=== PATIENT | male | born 1930 | race Caucasian/White ===

== ENCOUNTER 2017-09-20 07:28 | Day surgery (SDC) | payer MEDICARE ==
[~2017-09-20 07:28] MED LIST: ACEBUTOLOL HCL PO; ALUM320SU PO; AMLO5 PO; ASPI325 PO; ASPI81CH PO; Aspirin EC81 MG; BIOTIN1 MG PO; BRIM.15SO BOTHEYES; CHOL10002 PO; CLOP75 PO; CYAN500 PO; DARBEPOETIN ALFA INJ; Ester-C 500 MG1 EACH PO; FLAX PO; GLUC500 PO; LATA.005SO BOTHEYES; Lipitor20 MG PO; MELA3 PO; OSTERA TABLET1 EACH PO; Rena-Vite Tabl0.8 MG PO; SEVEC800; SILD50TA PO; Saw Palmetto160 MG; TIMDOROPSO BOTHEYES; VALS80 PO
== END 2017-09-20 11:20 | disposition home or self-care (01) ==
LOC: ORSCMMR 07:28 → ORD 09:00 → ORSCMMR 11:20
PROVIDERS: Surgery
PROC: 0YU50JZ Supplement Right Inguinal Region with Synthetic Substitute, Open Approach (ICD-10-PCS; principal; 2017-09-20 09:00)
DX: K40.90 Unilateral inguinal hernia, without obstruction or gangrene, not specified as recurrent (principal); N18.4 Chronic kidney disease, stage 4 (severe); G47.33 Obstructive sleep apnea (adult) (pediatric); Z79.82 Long term (current) use of aspirin; Z79.899 Other long term (current) drug therapy
CPT/HCPCS: 84132; C1781; J0690; J1100; J2405; J2710; J2765; J3010; J7030; J7120

== ENCOUNTER → 2017-12-05 | Outpatient (CLI) | payer MEDICARE ==
[~2017-12-05] MED LIST changes: +CEPH500 PO; +LOSA25 PO; +LOSA50 PO; +Renvela800 MG; +TRAZ50 PO
== END | disposition home or self-care (01) ==
LOC: LAB SHORT 15:20 → LAB 15:20
DX: L08.9 Local infection of the skin and subcutaneous tissue, unspecified (principal)
CPT/HCPCS: 87070; 87147; 87205

== ENCOUNTER 2017-12-12 13:33 | Inpatient (IN) | payer MEDICARE ==
[~2017-12-12] VITALS: Ht 180.3 cm; Wt 69.4 kg
[~2017-12-12 13:33] MED LIST changes: -CEPH500 PO; -LATA.005SO BOTHEYES; -LOSA25 PO; -LOSA50 PO; -Renvela800 MG; -TRAZ50 PO; +Xalatan2.5 ML BOTHEYES
[2017-12-12 14:03] LABS: BASOPHILS ABSOLUTE AUTO 0.02 K/mm3 (0.00-0.23); BASOPHILS PERCENT AUTO 0 % (0-2); EOSINOPHILS ABSOLUTE AUTO 0.03 K/mm3 (0.00-0.68); EOSINOPHILS PERCENT AUTO 0 % (0-6); Hematocrit 29.7 % (37.0-53.0); Hemoglobin 9.7 g/dL (13.5-17.5); IMMATURE GRAN ABSOLUTE AUTO 0.05 K/mm3 (0.00-0.10); IMMATURE GRAN PERCENT AUTO 0 % (0-1); LYMPHOCYTES ABSOLUTE AUTO 0.58 K/mm3 (0.84-5.20); LYMPHOCYTES PERCENT AUTO 4 % (21-46); MONOCYTES ABSOLUTE AUTO 0.92 K/mm3 (0.16-1.47); MONOCYTES PERCENT AUTO 7 % (4-13); Mean Corpuscular HGB 35.7 pg (26.0-34.0); Mean Corpuscular HGB Conc 32.7 g/dL (31.5-36.5); Mean Corpuscular Volume 109 fL (80-100); Mean Platelet Volume 11.2 fL (9.1-12.4); NEUTROPHILS ABSOLUTE AUTO 11.58 K/mm3 (1.96-9.15); NEUTROPHILS PERCENT AUTO 88 % (41-73); Platelet Count 170 K/mm3 (150-400); RDW Coefficient Variation 14.4 % (11.7-14.2); RDW Standard Deviation 57.8 fL (35.1-46.3); Red Blood Cell Count 2.72 M/mm3 (4.30-5.90); White Blood Cell Count 13.18 K/mm3 (4.00-11.30)
[2017-12-12 14:41] LABS: Albumin, Blood 2.8 g/dL (3.4-5.0); Albumin/Globulin Ratio 0.6 (0.8-1.8); Bilirubin, Total 0.4 mg/dL (0.1-1.0); Bun/Creatinine Ratio 4.7 (12.0-20.0); Globulin, Blood 4.4 g/dL (2.2-4.0); Potassium, Blood 4.1 mmol/L (3.5-5.5); Total Protein, Blood 7.2 g/dL (6.4-8.2)
[2017-12-12] MEDS ORDERED: TRAZ50 PO (15:26)
[2017-12-12] MEDS ORDERED: LOSA25 PO (15:26)
[2017-12-12] MEDS ORDERED: Rena-Vite Tabl0.8 MG PO (15:27)
[2017-12-12] MEDS ORDERED: Renvela800 MG PO (15:28)
[2017-12-12] MEDS ORDERED: CEPH500 PO (15:29)
[2017-12-12 16:59] LABS: Automated BF WBC Count 13.062 K/mm3 (0-999); Body Fluid WBC Count 13062 /mm3 (0-999)
[2017-12-12 17:00] LABS: Appearance, Body Fluid Cloudy (Clear); Color, Body Fluid Yellow (None-Yellow)
[2017-12-12 17:03] LABS: Total Cell Count, Body Fluid 100
[2017-12-12 17:34] LABS: RBC Count, Body Fluid 170 /mm3 (0-0)
[2017-12-12] MEDS ORDERED: LOSA50 PO (22:55)
[2017-12-13 04:47] LABS: Hemoglobin 8.3 g/dL (13.5-17.5); Mean Corpuscular HGB 34.6 pg (26.0-34.0); Mean Corpuscular HGB Conc 31.9 g/dL (31.5-36.5); Mean Corpuscular Volume 108 fL (80-100); Platelet Count 128 K/mm3 (150-400); RDW Coefficient Variation 14.6 % (11.7-14.2); RDW Standard Deviation 57.1 fL (35.1-46.3); White Blood Cell Count 13.04 K/mm3 (4.00-11.30)
[2017-12-13 05:12] LABS: Magnesium, Blood 2.5 mg/dL (1.6-2.4)
[2017-12-13 05:22] LABS: Albumin, Blood 2.3 g/dL (3.4-5.0); Anion Gap 12 mmol/L (6-16); Blood Urea Nitrogen 64 mg/dL (8-24); Bun/Creatinine Ratio 4.9 (12.0-20.0); CO2, Blood 25 mmol/L (21-32); Calcium, Blood 8.6 mg/dL (8.5-10.1); Chloride, Blood 104 mmol/L (98-108); Glomerular Filtration Rate 4 (60-); Glucose, Blood 119 mg/dL (70-99); Phosphorus, Blood 5.4 mg/dL (2.5-4.9); Potassium, Blood 3.6 mmol/L (3.5-5.5); Sodium, Blood 141 mmol/L (136-145); Vancomycin, Random 14.1 ug/mL
[2017-12-13 12:16] LABS: Source, Urine Voided
[2017-12-13 12:22] LABS: Bilirubin, Urine Neg (Neg); Blood, Urine 1+ (Neg); Glucose Qualitative, Urine 1+ (Neg); Ketones, Urine Neg (Neg); Leukocyte Esterase, Urine Neg (Neg); Nitrite, Urine Neg (Neg); Protein, Urine 3+ (Neg); Urobilinogen, Urine NORM (Normal); pH, Urine 6.5 (5.0-8.0)
[2017-12-13 12:42] LABS: Appearance, Urine Clear (Clear); Color, Urine Yellow (P-Yellow)
[2017-12-13 12:43] LABS: Calcium Oxalate Crystals Rare /hpf; Red Blood Cells, Urine 0-2 /hpf (0-2); Squamous Epithelial Cells Rare /hpf (Few); White Blood Cells, Urine 0-2 /hpf (0-5)
[2017-12-13 15:53] LABS: Automated BF WBC Count 1.544 K/mm3 (0-999); Body Fluid WBC Count 1544 /mm3 (0-999)
[2017-12-13 16:10] LABS: RBC Count, Body Fluid 18 /mm3 (0-0)
[2017-12-13 16:32] LABS: Appearance, Body Fluid Cloudy (Clear); Color, Body Fluid L Yellow (None-Yellow); Total Cell Count, Body Fluid 100
[2017-12-14 04:58] LABS: BASOPHILS ABSOLUTE AUTO 0.02 K/mm3 (0.00-0.23); BASOPHILS PERCENT AUTO 0 % (0-2); EOSINOPHILS ABSOLUTE AUTO 0.31 K/mm3 (0.00-0.68); EOSINOPHILS PERCENT AUTO 5 % (0-6); Hematocrit 27.2 % (37.0-53.0); Hemoglobin 8.6 g/dL (13.5-17.5); IMMATURE GRAN ABSOLUTE AUTO 0.02 K/mm3 (0.00-0.10); IMMATURE GRAN PERCENT AUTO 0 % (0-1); LYMPHOCYTES ABSOLUTE AUTO 1.05 K/mm3 (0.84-5.20); LYMPHOCYTES PERCENT AUTO 15 % (21-46); MONOCYTES ABSOLUTE AUTO 0.66 K/mm3 (0.16-1.47); MONOCYTES PERCENT AUTO 10 % (4-13); Mean Corpuscular HGB 35.2 pg (26.0-34.0); Mean Corpuscular HGB Conc 31.6 g/dL (31.5-36.5); Mean Platelet Volume 11.8 fL (9.1-12.4); NEUTROPHILS ABSOLUTE AUTO 4.75 K/mm3 (1.96-9.15); NEUTROPHILS PERCENT AUTO 70 % (41-73); Platelet Count 126 K/mm3 (150-400); RDW Coefficient Variation 14.3 % (11.7-14.2); RDW Standard Deviation 58.9 fL (35.1-46.3); Red Blood Cell Count 2.44 M/mm3 (4.30-5.90); White Blood Cell Count 6.81 K/mm3 (4.00-11.30)
[2017-12-14 05:06] LABS: Mean Corpuscular Volume 112 fL (80-100)
[2017-12-14 05:19] LABS: Magnesium, Blood 2.2 mg/dL (1.6-2.4)
[2017-12-14 05:59] LABS: Albumin, Blood 2.1 g/dL (3.4-5.0); Anion Gap 11 mmol/L (6-16); Blood Urea Nitrogen 58 mg/dL (8-24); Bun/Creatinine Ratio 5.2 (12.0-20.0); CO2, Blood 26 mmol/L (21-32); Calcium, Blood 8.7 mg/dL (8.5-10.1); Chloride, Blood 101 mmol/L (98-108); Glomerular Filtration Rate 5 (60-); Glucose, Blood 136 mg/dL (70-99); Phosphorus, Blood 4.5 mg/dL (2.5-4.9); Potassium, Blood 3.3 mmol/L (3.5-5.5); Sodium, Blood 138 mmol/L (136-145); Vancomycin, Random 20.5 ug/mL
[2017-12-14 07:52] LABS: Automated BF WBC Count 0.119 K/mm3 (0-999); Body Fluid WBC Count 119 /mm3 (0-999)
[2017-12-14 08:48] LABS: RBC Count, Body Fluid 3 /mm3 (0-0)
[2017-12-14 08:59] LABS: Appearance, Body Fluid Clear (Clear); Color, Body Fluid No color (None-Yellow); Total Cell Count, Body Fluid 100
[2017-12-14] MEDS ORDERED: AMPI250 PO (11:41)
[2017-12-14] MEDS ORDERED: ACIDOPHILUS1 EAC1 PO (11:42)
[2017-12-14] MEDS ORDERED: ONDA8 PO (11:43)
== END 2017-12-14 13:19 | disposition home or self-care (01) | DRG 919 ==
LOC: ER 13:33 → ERHOLD 18:02 → ICUE 22:37 → MEDS 12-13 16:31 → ENPENDDIS 12-14 10:02 → MEDS 12-14 13:19
PROVIDERS: Emergency Medicine; Internal Medicine; Internal Medicine Nephrology; Nurse Practitioner Acute Care
DX: T85.71XA Infection and inflammatory reaction due to peritoneal dialysis catheter, initial encounter (principal); N18.6 End stage renal disease; N25.81 Secondary hyperparathyroidism of renal origin; I12.0 Hypertensive chronic kidney disease with stage 5 chronic kidney disease or end stage renal disease; K52.1 Toxic gastroenteritis and colitis; Z99.2 Dependence on renal dialysis; L03.011 Cellulitis of right finger; E78.5 Hyperlipidemia, unspecified; D63.1 Anemia in chronic kidney disease; A49.02 Methicillin resistant Staphylococcus aureus infection, unspecified site; E87.70 Fluid overload, unspecified; H40.9 Unspecified glaucoma; E87.6 Hypokalemia; B95.2 Enterococcus as the cause of diseases classified elsewhere; B96.20 Unspecified Escherichia coli [E. coli] as the cause of diseases classified elsewhere; Z79.82 Long term (current) use of aspirin; R11.2 Nausea with vomiting, unspecified; T36.1X5A Adverse effect of cephalosporins and other beta-lactam antibiotics, initial encounter; Y92.009 Unspecified place in unspecified non-institutional (private) residence as the place of occurrence of the external cause
CPT/HCPCS: 36415; 71046; 74176; 80048; 80053; 80069; 80202; 81001; 83735; 85025; 85027; 87040; 87070; 87075; 87077; 87186; 87205; 89051; 90686; 97116; 97162; 97530; 99285-25; G0008; G8978; G8979; J0690; J0696; J0713; J0881; J1644; J3370; J7040

== ENCOUNTER 2017-12-15 12:42 | Inpatient (IN) | payer MEDICARE ==
[~2017-12-15] VITALS: Ht 177.8 cm; Wt 72.5 kg
[~2017-12-15 12:42] MED LIST changes: +ACIDOPHILUS1 EAC1 PO; +AMPI250 PO; +CEPH500 PO; +LOSA25 PO; +LOSA50 PO; +ONDA8 PO; +Renvela800 MG PO; +TRAZ50 PO
[2017-12-15 13:17] LABS: BASOPHILS ABSOLUTE AUTO 0.03 K/mm3 (0.00-0.23); BASOPHILS PERCENT AUTO 0 % (0-2); EOSINOPHILS ABSOLUTE AUTO 0.15 K/mm3 (0.00-0.68); EOSINOPHILS PERCENT AUTO 1 % (0-6); Hematocrit 30.1 % (37.0-53.0); Hemoglobin 9.8 g/dL (13.5-17.5); IMMATURE GRAN ABSOLUTE AUTO 0.05 K/mm3 (0.00-0.10); IMMATURE GRAN PERCENT AUTO 0 % (0-1); LYMPHOCYTES ABSOLUTE AUTO 0.85 K/mm3 (0.84-5.20); LYMPHOCYTES PERCENT AUTO 6 % (21-46); MONOCYTES ABSOLUTE AUTO 0.78 K/mm3 (0.16-1.47); MONOCYTES PERCENT AUTO 6 % (4-13); Mean Corpuscular HGB 35.1 pg (26.0-34.0); Mean Corpuscular HGB Conc 32.6 g/dL (31.5-36.5); Mean Platelet Volume 10.8 fL (9.1-12.4); NEUTROPHILS ABSOLUTE AUTO 11.96 K/mm3 (1.96-9.15); NEUTROPHILS PERCENT AUTO 87 % (41-73); Platelet Count 182 K/mm3 (150-400); RDW Coefficient Variation 14.4 % (11.7-14.2); RDW Standard Deviation 56.8 fL (35.1-46.3); Red Blood Cell Count 2.79 M/mm3 (4.30-5.90); White Blood Cell Count 13.82 K/mm3 (4.00-11.30)
[2017-12-15 13:18] LABS: Mean Corpuscular Volume 108 fL (80-100)
[2017-12-15 14:04] LABS: Albumin, Blood 2.7 g/dL (3.4-5.0); Albumin/Globulin Ratio 0.6 (0.8-1.8); Bilirubin, Total 0.3 mg/dL (0.1-1.0); Bun/Creatinine Ratio 5.5 (12.0-20.0); Calcium, Blood 8.8 mg/dL (8.5-10.1); Creatinine, Blood 9.63 mg/dL (0.60-1.20); Globulin, Blood 4.9 g/dL (2.2-4.0); Potassium, Blood 3.7 mmol/L (3.5-5.5); Total Protein, Blood 7.6 g/dL (6.4-8.2)
[2017-12-16 05:17] LABS: BASOPHILS ABSOLUTE AUTO 0.01 K/mm3 (0.00-0.23); BASOPHILS PERCENT AUTO 0 % (0-2); EOSINOPHILS ABSOLUTE AUTO 0.24 K/mm3 (0.00-0.68); EOSINOPHILS PERCENT AUTO 4 % (0-6); Hematocrit 25.8 % (37.0-53.0); Hemoglobin 8.1 g/dL (13.5-17.5); IMMATURE GRAN ABSOLUTE AUTO 0.03 K/mm3 (0.00-0.10); IMMATURE GRAN PERCENT AUTO 1 % (0-1); LYMPHOCYTES PERCENT AUTO 17 % (21-46); MONOCYTES ABSOLUTE AUTO 0.52 K/mm3 (0.16-1.47); MONOCYTES PERCENT AUTO 10 % (4-13); Mean Corpuscular HGB 34.9 pg (26.0-34.0); Mean Corpuscular HGB Conc 31.4 g/dL (31.5-36.5); Mean Platelet Volume 11.1 fL (9.1-12.4); NEUTROPHILS ABSOLUTE AUTO 3.75 K/mm3 (1.96-9.15); NEUTROPHILS PERCENT AUTO 69 % (41-73); Platelet Count 148 K/mm3 (150-400); RDW Coefficient Variation 14.6 % (11.7-14.2); RDW Standard Deviation 59.6 fL (35.1-46.3); Red Blood Cell Count 2.32 M/mm3 (4.30-5.90); White Blood Cell Count 5.45 K/mm3 (4.00-11.30)
[2017-12-16 05:20] LABS: Mean Corpuscular Volume 111 fL (80-100)
[2017-12-16 05:40] LABS: Gentamicin, Random <0.2 ug/Ml; Vancomycin, Random 15.3 ug/mL
[2017-12-16 05:49] LABS: Alanine Aminotransfer (ALT/SGP 11 U/L (12-78); Albumin/Globulin Ratio 0.5 (0.8-1.8); Alk Phos 65 U/L (50-136); Anion Gap 11 mmol/L (6-16); Aspartate Aminotrans (AST/SGOT 25 U/L (12-37); Bilirubin, Total 0.3 mg/dL (0.1-1.0); Blood Urea Nitrogen 50 mg/dL (8-24); Bun/Creatinine Ratio 5.4 (12.0-20.0); CO2, Blood 27 mmol/L (21-32); Calcium, Blood 8.1 mg/dL (8.5-10.1); Chloride, Blood 102 mmol/L (98-108); Creatinine, Blood 9.27 mg/dL (0.60-1.20); Globulin, Blood 4.2 g/dL (2.2-4.0); Glomerular Filtration Rate 6 (60-); Glucose, Blood 162 mg/dL (70-99); Phosphorus, Blood 3.5 mg/dL (2.5-4.9); Potassium, Blood 3.2 mmol/L (3.5-5.5); Sodium, Blood 140 mmol/L (136-145); Total Protein, Blood 6.2 g/dL (6.4-8.2)
[2017-12-16 13:28] LABS: Automated BF WBC Count 0.275 K/mm3 (0-999); Body Fluid WBC Count 275 /mm3 (0-999)
[2017-12-16 14:19] LABS: Appearance, Body Fluid Clear (Clear); Color, Body Fluid No color (None-Yellow); RBC Count, Body Fluid 2 /mm3 (0-0)
[2017-12-16 15:12] LABS: Total Cell Count, Body Fluid 100
[2017-12-16 16:07] LABS: Gentamicin, Random 1.1 ug/Ml; Vancomycin, Random 27.8 ug/mL
[2017-12-17 05:16] LABS: Hematocrit 25.8 % (37.0-53.0)
[2017-12-17 05:47] LABS: Albumin, Blood 1.9 g/dL (3.4-5.0); Anion Gap 11 mmol/L (6-16); Blood Urea Nitrogen 43 mg/dL (8-24); Bun/Creatinine Ratio 5.1 (12.0-20.0); CO2, Blood 27 mmol/L (21-32); Chloride, Blood 104 mmol/L (98-108); Creatinine, Blood 8.42 mg/dL (0.60-1.20); Glomerular Filtration Rate 6 (60-); Glucose, Blood 147 mg/dL (70-99); Phosphorus, Blood 3.4 mg/dL (2.5-4.9); Potassium, Blood 3.1 mmol/L (3.5-5.5); Sodium, Blood 142 mmol/L (136-145)
[2017-12-17 12:33] LABS: Gentamicin, Random 1.3 ug/Ml; Vancomycin, Random 23.1 ug/mL
[2017-12-18 05:26] LABS: BASOPHILS ABSOLUTE AUTO 0.02 K/mm3 (0.00-0.23); BASOPHILS PERCENT AUTO 0 % (0-2); EOSINOPHILS ABSOLUTE AUTO 0.39 K/mm3 (0.00-0.68); EOSINOPHILS PERCENT AUTO 7 % (0-6); Hematocrit 26.6 % (37.0-53.0); Hemoglobin 8.3 g/dL (13.5-17.5); IMMATURE GRAN ABSOLUTE AUTO 0.05 K/mm3 (0.00-0.10); IMMATURE GRAN PERCENT AUTO 1 % (0-1); LYMPHOCYTES PERCENT AUTO 19 % (21-46); MONOCYTES ABSOLUTE AUTO 0.76 K/mm3 (0.16-1.47); MONOCYTES PERCENT AUTO 13 % (4-13); Mean Corpuscular HGB 34.9 pg (26.0-34.0); Mean Corpuscular HGB Conc 31.2 g/dL (31.5-36.5); Mean Corpuscular Volume 112 fL (80-100); Mean Platelet Volume 11.5 fL (9.1-12.4); NEUTROPHILS ABSOLUTE AUTO 3.51 K/mm3 (1.96-9.15); NEUTROPHILS PERCENT AUTO 60 % (41-73); NRBC ABSOLUTE 0.04 K/mm3 (0.00-0.02); NRBC Auto 0.7 /100 WBC (0.0-0.2); Platelet Count 158 K/mm3 (150-400); RDW Coefficient Variation 14.9 % (11.7-14.2); Red Blood Cell Count 2.38 M/mm3 (4.30-5.90); White Blood Cell Count 5.83 K/mm3 (4.00-11.30)
[2017-12-18 05:48] LABS: Magnesium, Blood 2.1 mg/dL (1.6-2.4)
[2017-12-18 05:53] LABS: Anion Gap 11 mmol/L (6-16); Blood Urea Nitrogen 46 mg/dL (8-24); Bun/Creatinine Ratio 5.1 (12.0-20.0); CO2, Blood 27 mmol/L (21-32); Calcium, Blood 8.6 mg/dL (8.5-10.1); Chloride, Blood 105 mmol/L (98-108); Creatinine, Blood 9.06 mg/dL (0.60-1.20); Glomerular Filtration Rate 6 (60-); Glucose, Blood 123 mg/dL (70-99); Phosphorus, Blood 2.6 mg/dL (2.5-4.9); Potassium, Blood 3.7 mmol/L (3.5-5.5); Sodium, Blood 143 mmol/L (136-145)
[2017-12-18 07:44] LABS: Body Fluid WBC Count 10 /mm3 (0-999)
[2017-12-18 07:46] LABS: Gentamicin, Random 1.3 ug/Ml; Vancomycin, Random 21.2 ug/mL
[2017-12-18 08:24] LABS: RBC Count, Body Fluid 1 /mm3 (0-0)
[2017-12-18 08:49] LABS: Appearance, Body Fluid Clear (Clear); Color, Body Fluid No color (None-Yellow)
[2017-12-18 08:50] LABS: Total Cell Count, Body Fluid 100
[2017-12-18 10:09] LABS: Adenovirus F 40/41 Not Detected (NOT DETECT); Astrovirus Not Detected (NOT DETECT); Campylobacter Sp Not Detected (NOT DETECT); Cryptosporidium Not Detected (NOT DETECT); Cyclospora Cayetanensis Not Detected (NOT DETECT); E. Coli O157 Not Detected (NOT DETECT); Entamoeba Histolytica Not Detected (NOT DETECT); Enteroaggregative E. coli-EAEC Not Detected (NOT DETECT); Enteropathogenic E. coli-EPEC Not Detected (NOT DETECT); Enterotoxigenic E. coli-ETEC Not Detected (NOT DETECT); Giardia Lamblia Not Detected (NOT DETECT); Norovirus GI/GII Not Detected (NOT DETECT); Plesiomonas Shigelloides Not Detected (NOT DETECT); Rotavirus A Not Detected (NOT DETECT); Salmonella Sp Not Detected (NOT DETECT); Sapovirus Not Detected (NOT DETECT); Shiga Toxin-prod E. coli-STEC Not Detected (NOT DETECT); Shigella/Enteroin E. coli-EIEC Not Detected (NOT DETECT); Vibrio Cholerae Not Detected (NOT DETECT); Vibrio Sp Not Detected (NOT DETECT); Yersinia Enterocolitica Not Detected (NOT DETECT)
[2017-12-19 06:06] LABS: BASOPHILS ABSOLUTE AUTO 0.02 K/mm3 (0.00-0.23); BASOPHILS PERCENT AUTO 0 % (0-2); EOSINOPHILS ABSOLUTE AUTO 0.36 K/mm3 (0.00-0.68); EOSINOPHILS PERCENT AUTO 6 % (0-6); Hematocrit 27.3 % (37.0-53.0); Hemoglobin 8.5 g/dL (13.5-17.5); IMMATURE GRAN ABSOLUTE AUTO 0.04 K/mm3 (0.00-0.10); IMMATURE GRAN PERCENT AUTO 1 % (0-1); LYMPHOCYTES ABSOLUTE AUTO 1.31 K/mm3 (0.84-5.20); LYMPHOCYTES PERCENT AUTO 21 % (21-46); MONOCYTES ABSOLUTE AUTO 0.74 K/mm3 (0.16-1.47); MONOCYTES PERCENT AUTO 12 % (4-13); Mean Corpuscular HGB 35.3 pg (26.0-34.0); Mean Corpuscular HGB Conc 31.1 g/dL (31.5-36.5); Mean Corpuscular Volume 113 fL (80-100); Mean Platelet Volume 11.3 fL (9.1-12.4); NEUTROPHILS ABSOLUTE AUTO 3.71 K/mm3 (1.96-9.15); NEUTROPHILS PERCENT AUTO 60 % (41-73); NRBC ABSOLUTE 0.03 K/mm3 (0.00-0.02); NRBC Auto 0.5 /100 WBC (0.0-0.2); Platelet Count 173 K/mm3 (150-400); RDW Coefficient Variation 14.8 % (11.7-14.2); RDW Standard Deviation 61.7 fL (35.1-46.3); Red Blood Cell Count 2.41 M/mm3 (4.30-5.90); White Blood Cell Count 6.18 K/mm3 (4.00-11.30)
[2017-12-19 07:07] LABS: Albumin, Blood 2.2 g/dL (3.4-5.0); Anion Gap 10 mmol/L (6-16); Blood Urea Nitrogen 45 mg/dL (8-24); Bun/Creatinine Ratio 4.5 (12.0-20.0); CO2, Blood 28 mmol/L (21-32); Calcium, Blood 8.6 mg/dL (8.5-10.1); Chloride, Blood 106 mmol/L (98-108); Glomerular Filtration Rate 5 (60-); Glucose, Blood 117 mg/dL (70-99); Phosphorus, Blood 3.4 mg/dL (2.5-4.9); Sodium, Blood 144 mmol/L (136-145)
[2017-12-19 07:47] LABS: Gentamicin, Random 1.9 ug/Ml; Vancomycin, Random 21.5 ug/mL
[2017-12-19 19:39] LABS: Source, Urine Catheter
[2017-12-19 19:49] LABS: Bilirubin, Urine Neg (Neg); Blood, Urine 1+ (Neg); Glucose Qualitative, Urine 1+ (Neg); Ketones, Urine Neg (Neg); Leukocyte Esterase, Urine Neg (Neg); Nitrite, Urine Neg (Neg); Protein, Urine 3+ (Neg); Urobilinogen, Urine NORM (Normal)
[2017-12-19 20:30] LABS: Appearance, Urine Clear (Clear); Color, Urine Yellow (P-Yellow)
[2017-12-19 20:31] LABS: Red Blood Cells, Urine 0-2 /hpf (0-2)
[2017-12-19 20:32] LABS: Bacteria Not Seen /hpf; Squamous Epithelial Cells Rare /hpf (Few)
[2017-12-20 04:56] LABS: Gentamicin, Random 1.9 ug/Ml; Vancomycin, Random 18.2 ug/mL
[2017-12-21 05:47] LABS: BASOPHILS ABSOLUTE AUTO 0.03 K/mm3 (0.00-0.23); BASOPHILS PERCENT AUTO 1 % (0-2); EOSINOPHILS ABSOLUTE AUTO 0.35 K/mm3 (0.00-0.68); EOSINOPHILS PERCENT AUTO 6 % (0-6); Hematocrit 27.5 % (37.0-53.0); Hemoglobin 8.4 g/dL (13.5-17.5); IMMATURE GRAN ABSOLUTE AUTO 0.07 K/mm3 (0.00-0.10); IMMATURE GRAN PERCENT AUTO 1 % (0-1); LYMPHOCYTES ABSOLUTE AUTO 1.46 K/mm3 (0.84-5.20); LYMPHOCYTES PERCENT AUTO 25 % (21-46); MONOCYTES ABSOLUTE AUTO 0.85 K/mm3 (0.16-1.47); MONOCYTES PERCENT AUTO 15 % (4-13); Mean Corpuscular HGB 35.3 pg (26.0-34.0); Mean Corpuscular HGB Conc 30.5 g/dL (31.5-36.5); Mean Platelet Volume 11.6 fL (9.1-12.4); NEUTROPHILS ABSOLUTE AUTO 3.08 K/mm3 (1.96-9.15); NEUTROPHILS PERCENT AUTO 53 % (41-73); NRBC ABSOLUTE 0.04 K/mm3 (0.00-0.02); NRBC Auto 0.7 /100 WBC (0.0-0.2); Platelet Count 176 K/mm3 (150-400); RDW Coefficient Variation 15.5 % (11.7-14.2); RDW Standard Deviation 63.5 fL (35.1-46.3); Red Blood Cell Count 2.38 M/mm3 (4.30-5.90); White Blood Cell Count 5.84 K/mm3 (4.00-11.30)
[2017-12-21 05:49] LABS: Mean Corpuscular Volume 116 fL (80-100)
[2017-12-21 06:32] LABS: Albumin, Blood 2.2 g/dL (3.4-5.0); Anion Gap 11 mmol/L (6-16); Blood Urea Nitrogen 52 mg/dL (8-24); Bun/Creatinine Ratio 4.7 (12.0-20.0); CO2, Blood 25 mmol/L (21-32); Calcium, Blood 8.2 mg/dL (8.5-10.1); Chloride, Blood 106 mmol/L (98-108); Glomerular Filtration Rate 5 (60-); Glucose, Blood 121 mg/dL (70-99); Phosphorus, Blood 4.2 mg/dL (2.5-4.9); Potassium, Blood 4.6 mmol/L (3.5-5.5); Sodium, Blood 142 mmol/L (136-145)
[2017-12-21 12:41] LABS: Gentamicin, Random 1.7 ug/Ml; Vancomycin, Random 19.4 ug/mL
[2017-12-22 05:48] LABS: BASOPHILS ABSOLUTE AUTO 0.04 K/mm3 (0.00-0.23); BASOPHILS PERCENT AUTO 1 % (0-2); EOSINOPHILS ABSOLUTE AUTO 0.35 K/mm3 (0.00-0.68); EOSINOPHILS PERCENT AUTO 6 % (0-6); Hemoglobin 8.6 g/dL (13.5-17.5); IMMATURE GRAN ABSOLUTE AUTO 0.09 K/mm3 (0.00-0.10); IMMATURE GRAN PERCENT AUTO 2 % (0-1); LYMPHOCYTES ABSOLUTE AUTO 1.42 K/mm3 (0.84-5.20); LYMPHOCYTES PERCENT AUTO 25 % (21-46); MONOCYTES ABSOLUTE AUTO 0.82 K/mm3 (0.16-1.47); MONOCYTES PERCENT AUTO 14 % (4-13); Mean Corpuscular HGB 35.4 pg (26.0-34.0); Mean Corpuscular HGB Conc 30.7 g/dL (31.5-36.5); Mean Corpuscular Volume 115 fL (80-100); Mean Platelet Volume 11.2 fL (9.1-12.4); NEUTROPHILS ABSOLUTE AUTO 2.99 K/mm3 (1.96-9.15); NEUTROPHILS PERCENT AUTO 52 % (41-73); NRBC ABSOLUTE 0.04 K/mm3 (0.00-0.02); NRBC Auto 0.7 /100 WBC (0.0-0.2); Platelet Count 185 K/mm3 (150-400); RDW Coefficient Variation 15.9 % (11.7-14.2); RDW Standard Deviation 63.7 fL (35.1-46.3); Red Blood Cell Count 2.43 M/mm3 (4.30-5.90); White Blood Cell Count 5.71 K/mm3 (4.00-11.30)
[2017-12-22 06:26] LABS: Albumin, Blood 2.2 g/dL (3.4-5.0); Anion Gap 12 mmol/L (6-16); Blood Urea Nitrogen 56 mg/dL (8-24); Bun/Creatinine Ratio 4.9 (12.0-20.0); CO2, Blood 24 mmol/L (21-32); Calcium, Blood 8.2 mg/dL (8.5-10.1); Chloride, Blood 108 mmol/L (98-108); Glomerular Filtration Rate 5 (60-); Glucose, Blood 130 mg/dL (70-99); Phosphorus, Blood 4.6 mg/dL (2.5-4.9); Sodium, Blood 144 mmol/L (136-145)
[2017-12-22 17:56] LABS: Automated BF WBC Count 0.026 K/mm3 (0-999); Body Fluid WBC Count 26 /mm3 (0-999)
[2017-12-22 18:12] LABS: Appearance, Body Fluid Clear (Clear); Color, Body Fluid No color (None-Yellow); RBC Count, Body Fluid 2 /mm3 (0-0)
[2017-12-22 18:35] LABS: Total Cell Count, Body Fluid 100
[2017-12-23 05:59] LABS: Hematocrit 31.9 % (37.0-53.0); Hemoglobin 9.8 g/dL (13.5-17.5)
[2017-12-23 06:28] LABS: Magnesium, Blood 2.6 mg/dL (1.6-2.4)
[2017-12-23 06:37] LABS: Albumin, Blood 2.3 g/dL (3.4-5.0); Anion Gap 10 mmol/L (6-16); Blood Urea Nitrogen 64 mg/dL (8-24); Bun/Creatinine Ratio 5.2 (12.0-20.0); CO2, Blood 25 mmol/L (21-32); Calcium, Blood 8.1 mg/dL (8.5-10.1); Chloride, Blood 107 mmol/L (98-108); Glomerular Filtration Rate 4 (60-); Glucose, Blood 147 mg/dL (70-99); Phosphorus, Blood 5.1 mg/dL (2.5-4.9); Sodium, Blood 142 mmol/L (136-145)
[2017-12-23] MEDS ORDERED: COSOPT PF EYE1 EACH BOTHEYES (09:51)
[2017-12-23] MEDS ORDERED: Questran4 GM PO (09:54)
[2017-12-23] MEDS ORDERED: VANC125 PO (10:03)
[2017-12-23] MEDS ORDERED: METR500 PO (10:04)
== END 2017-12-23 13:09 | disposition home or self-care (01) | DRG 919 ==
LOC: ER 12:42 → MEDS 12:43 → ENPENDDIS 12-23 08:54 → MEDS 12-23 13:09
PROVIDERS: Emergency Medicine; Family Medicine; Internal Medicine Nephrology
DX: T85.71XA Infection and inflammatory reaction due to peritoneal dialysis catheter, initial encounter (principal); N18.6 End stage renal disease; N25.81 Secondary hyperparathyroidism of renal origin; A04.72 Enterocolitis due to Clostridium difficile, not specified as recurrent; I12.0 Hypertensive chronic kidney disease with stage 5 chronic kidney disease or end stage renal disease; E78.5 Hyperlipidemia, unspecified; D63.1 Anemia in chronic kidney disease; H40.9 Unspecified glaucoma; Z95.2 Presence of prosthetic heart valve; I77.0 Arteriovenous fistula, acquired; Z99.2 Dependence on renal dialysis; I25.10 Atherosclerotic heart disease of native coronary artery without angina pectoris; E86.9 Volume depletion, unspecified; D69.6 Thrombocytopenia, unspecified; E87.6 Hypokalemia; B96.20 Unspecified Escherichia coli [E. coli] as the cause of diseases classified elsewhere; T85.631A Leakage of intraperitoneal dialysis catheter, initial encounter; B96.6 Bacteroides fragilis [B. fragilis] as the cause of diseases classified elsewhere; E83.41 Hypermagnesemia; Z79.82 Long term (current) use of aspirin
CPT/HCPCS: 36415; 74018; 74177; 80053; 80069; 80170; 80202; 81001; 83735; 84100; 85014; 85018; 85025; 86850; 86900; 86901; 86923; 87086; 87507; 89051; 99284; C9113; J0881; J1580; J1644; J1650; J2543; J3370; J3480; J7030; J7050; P9016; Q9967

== ENCOUNTER 2018-03-27 15:51 | Emergency (ER) | payer MEDICARE ==
[~2018-03-27] VITALS: Ht 180.3 cm; Wt 74.4 kg
[~2018-03-27 15:51] MED LIST changes: -ASPI81CH PO; +COSOPT PF EYE1 EACH BOTHEYES; +Calphron667 MG PO; +FLAX SEED OIL1 EACH PO; +LOW DOSE ASPIRI81 MG PO; +METR500 PO; +Questran4 GM PO; +VANC125 PO
[2018-03-27 16:10] LABS: BASOPHILS ABSOLUTE AUTO 0.01 K/mm3 (0.00-0.23); BASOPHILS PERCENT AUTO 0 % (0-2); EOSINOPHILS ABSOLUTE AUTO 0.13 K/mm3 (0.00-0.68); EOSINOPHILS PERCENT AUTO 2 % (0-6); Hematocrit 25.5 % (37.0-53.0); Hemoglobin 8.1 g/dL (13.5-17.5); IMMATURE GRAN ABSOLUTE AUTO 0.05 K/mm3 (0.00-0.10); IMMATURE GRAN PERCENT AUTO 1 % (0-1); LYMPHOCYTES PERCENT AUTO 6 % (21-46); MONOCYTES ABSOLUTE AUTO 0.88 K/mm3 (0.16-1.47); MONOCYTES PERCENT AUTO 11 % (4-13); Mean Corpuscular HGB Conc 31.8 g/dL (31.5-36.5); Mean Corpuscular Volume 113 fL (80-100); Mean Platelet Volume 12.4 fL (9.1-12.4); NEUTROPHILS ABSOLUTE AUTO 6.43 K/mm3 (1.96-9.15); NEUTROPHILS PERCENT AUTO 80 % (41-73); Platelet Count 131 K/mm3 (150-400); RDW Coefficient Variation 15.7 % (11.7-14.2); RDW Standard Deviation 64.4 fL (35.1-46.3); Red Blood Cell Count 2.25 M/mm3 (4.30-5.90)
[2018-03-27] MEDS ORDERED: ARANESP INJ (16:29)
[2018-03-27] MEDS ORDERED: LOSA50 PO ×2 (16:30)
[2018-03-27] MEDS ORDERED: Alphagan P 5ML5 ML BOTHEYES (16:30)
[2018-03-27] MEDS ORDERED: Super B Comple1 EAC2 PO (16:31)
[2018-03-27] MEDS ORDERED: BIOTIN1000 MCG PO (16:31)
[2018-03-27] MEDS ORDERED: Saw Palmetto160 MG PO (16:32)
[2018-03-27 16:42] LABS: Albumin, Blood 2.2 g/dL (3.4-5.0); Albumin/Globulin Ratio 0.5 (0.8-1.8); Bilirubin, Total 0.4 mg/dL (0.1-1.0); Bun/Creatinine Ratio 7.5 (12.0-20.0); Calcium, Blood 7.4 mg/dL (8.5-10.1); Creatinine, Blood 12.2 mg/dL (0.60-1.20); Globulin, Blood 4.3 g/dL (2.2-4.0); Potassium, Blood 3.4 mmol/L (3.5-5.5); Total Protein, Blood 6.5 g/dL (6.4-8.2)
[2018-03-27] MEDS ORDERED: PRED10 PO (17:36)
== END 2018-03-27 17:48 | disposition home or self-care (01) ==
LOC: ER 15:51
PROVIDERS: Emergency Medicine
DX: M25.50 Pain in unspecified joint (principal); F19.939 Other psychoactive substance use, unspecified with withdrawal, unspecified; I12.9 Hypertensive chronic kidney disease with stage 1 through stage 4 chronic kidney disease, or unspecified chronic kidney disease; N18.9 Chronic kidney disease, unspecified; E78.5 Hyperlipidemia, unspecified; D64.9 Anemia, unspecified
CPT/HCPCS: 36415; 80053; 85025; 96374; 99283-25; J2930

== ENCOUNTER 2018-03-30 10:23 | Inpatient (IN) | payer MEDICARE ==
[~2018-03-30] VITALS: Ht 180.3 cm; Wt 70.0 kg
[~2018-03-30 10:23] MED LIST changes: +ARANESP INJ; +Alphagan P 5ML5 ML BOTHEYES; +BIOTIN1000 MCG PO; +PRED10 PO; +Saw Palmetto160 MG PO; +Super B Comple1 EAC2 PO
[2018-03-30] MEDS ORDERED: CLOP75 PO (11:00)
[2018-03-30 11:27] LABS: BASOPHILS ABSOLUTE AUTO 0.01 K/mm3 (0.00-0.23); BASOPHILS PERCENT AUTO 0 % (0-2); EOSINOPHILS ABSOLUTE AUTO 0.02 K/mm3 (0.00-0.68); EOSINOPHILS PERCENT AUTO 0 % (0-6); Hematocrit 24.4 % (37.0-53.0); Hemoglobin 7.5 g/dL (13.5-17.5); IMMATURE GRAN ABSOLUTE AUTO 0.18 K/mm3 (0.00-0.10); IMMATURE GRAN PERCENT AUTO 2 % (0-1); LYMPHOCYTES ABSOLUTE AUTO 0.99 K/mm3 (0.84-5.20); LYMPHOCYTES PERCENT AUTO 10 % (21-46); MONOCYTES ABSOLUTE AUTO 0.88 K/mm3 (0.16-1.47); MONOCYTES PERCENT AUTO 9 % (4-13); Mean Corpuscular HGB Conc 30.7 g/dL (31.5-36.5); Mean Corpuscular Volume 114 fL (80-100); Mean Platelet Volume 12.6 fL (9.1-12.4); NEUTROPHILS ABSOLUTE AUTO 8.13 K/mm3 (1.96-9.15); NEUTROPHILS PERCENT AUTO 80 % (41-73); Platelet Count 183 K/mm3 (150-400); RDW Coefficient Variation 15.9 % (11.7-14.2); RDW Standard Deviation 65.3 fL (35.1-46.3); Red Blood Cell Count 2.14 M/mm3 (4.30-5.90); White Blood Cell Count 10.21 K/mm3 (4.00-11.30)
[2018-03-30 11:45] LABS: Free Thyroxine 1.87 ng/dL (0.70-1.60); Magnesium, Blood 2.8 mg/dL (1.6-2.4)
[2018-03-30 11:47] LABS: Thyroid Stimulating Hormone 0.339 uIU/mL (0.360-4.800)
[2018-03-30 11:50] LABS: Albumin, Blood 2.3 g/dL (3.4-5.0); Albumin/Globulin Ratio 0.6 (0.8-1.8); Bilirubin, Total 0.5 mg/dL (0.1-1.0); Bun/Creatinine Ratio 10.6 (12.0-20.0); Calcium, Blood 7.1 mg/dL (8.5-10.1); Creatinine, Blood 11.2 mg/dL (0.60-1.20); Globulin, Blood 3.9 g/dL (2.2-4.0); Potassium, Blood 3.6 mmol/L (3.5-5.5); Total Protein, Blood 6.2 g/dL (6.4-8.2)
[2018-03-30 16:40] LABS: International Normalized Ratio 1.08; Prothrombin Time Results 11.1 Sec (9.7-11.5)
--- NOTE | 2018-03-30 19:50 | NUR ---
ARRIVAL TO ICU 1740 - PT ARRIVES FROM ED AT THIS TIME. HE IS DROWSY AND PALE IN COLOR. ORIENTED X 3, CALM, COOPERATIVE, AND ANSWERS QUESTIONS APPROPRIATELY. DENIES PAIN WHEN ASKED. PT HAS BRUISING TO BOTH UPPER EXTREMITIES. 18G IV INSERTED INTO EUGENIE WITH ULTRASOUND. HEPARIN INFUSION STARTED AT 1800, RATE IS 13 UNITS/HR PER ORDER. 5000 UNIT BOLUS GIVEN PRIOR TO STARTING GTT. WHEN PT INITIALLY ARRIVED, HIS BP WAS 60S SYSTOLIC WITH MAP 45-55. MD DUTTA NOTIFIED OF BP. ALBUMIN 25 GM/100ML THEN ORDERED AND ADMINISTERED. 1/2 UNITS OF PRBCS FINISHED INFUSING SHORTLY AFTER ARRIVAL TO ICU. PT RECEIVING UNIT 2/2 WITH HEMODIALYSIS AT THIS TIME. PTS BLOOD PRESSURE UP TO MAP OF 65-70 AT THIS TIME. REMAINS IN AFIB, HR 100-120. WILL CONTINUE TO MONITOR.
--- NOTE | 2018-03-30 19:54 | NUR ---
CONTINUING CARE THIS RN CONTINUING CARE OF PT AT CHANGE OF SHIFT. CURRENTLY RECEIVING HEMODIALYSIS AND UNIT 2/2 OF PRBCS. WILL RECIEVE PERITONEAL DIALYSIS NEXT.
--- NOTE | 2018-03-30 20:10 | NUR ---
DIALYSIS -PD SETUP WITH 1 4.25% DEXTROSE AND 1 2.5% DEXTROSE DIANEAL 6 L BAGS. CLEANED AND DRESSED SITE. TALKED TO RN ON DIRECTOR [employer]. CONNECTED PT PER PROTOCAL AFTER TAKING SAMPLE FOR LAB
[2018-03-30 20:32] LABS: Automated BF WBC Count 0.008 K/mm3 (0-999); Body Fluid WBC Count 8 /mm3 (0-999)
[2018-03-30 20:38] LABS: RBC Count, Body Fluid < 2000 /mm3 (0-0)
[2018-03-30 21:53] LABS: Appearance, Body Fluid Clear (Clear); Color, Body Fluid L Yellow (None-Yellow); Total Cell Count, Body Fluid 100
--- NOTE | 2018-03-30 22:46 | NUR ---
SHIFT SUMMARY PT ARRIVED FROM ED TO ICU AT 1730. ARRIVED WITH LOW BP AND 1/2 PRBCS INFUSING. HEMODIALYSIS STARTED SHORTLY AFTER ARRIVAL AND 2/2 PRBCS ADMINISTERED BY BLOOD BANK BOOKING CLERK. SEE BP RECORD FOR TRENDS. PT TOLERATED MANY IV ATTEMPTS AND REMOVALS DUE TO INFILTRATION. DENIES PAIN WHEN ASKED. DROWSY BUT ORIENTED X3 AND APPROPRIATE. CURRENTLY RECEIVING PERITONEAL DIALYSIS. AFEBRILE. HAS BEEN IN AFIB WITH HR 100-130 ENTIRE SHIFT. WILL GIVE BEDSIDE, HANDOFF REPORT TO MARYSE ZHANG.
--- NOTE | 2018-03-30 23:15 | NUR ---
ASSUMED CARE ASSUMED CARE OF PATIENT. RESTING QUIETLY WHEN UNDISTURBED. ROUSES EASILY TO VERBAL STIMULI. ORIENTED X 3 AND COOPERATIVE WITH CARE. DENIES C/O PAIN AT THIS TIME. MONITOR SHOWS AFIB, RATE 110-130. BBB NOTED. SBP 80s, MAP 60-65. REMAINS ON RA, SATS 94-97%. RESPIRATIONS EVEN AND UNLABORED. PERITONEAL DIALYSIS CONTINUES. HEPARIN GTT CONTINUES @ 13UNITS/KG/HR PER PHARMACY- NEXT PTT @ 0100.
[2018-03-31 03:01] LABS: BASOPHILS ABSOLUTE AUTO 0.01 K/mm3 (0.00-0.23); BASOPHILS PERCENT AUTO 0 % (0-2); EOSINOPHILS PERCENT AUTO 0 % (0-6); Hematocrit 27.9 % (37.0-53.0); Hemoglobin 9.2 g/dL (13.5-17.5); IMMATURE GRAN ABSOLUTE AUTO 0.26 K/mm3 (0.00-0.10); IMMATURE GRAN PERCENT AUTO 3 % (0-1); LYMPHOCYTES ABSOLUTE AUTO 0.48 K/mm3 (0.84-5.20); LYMPHOCYTES PERCENT AUTO 5 % (21-46); MONOCYTES ABSOLUTE AUTO 0.66 K/mm3 (0.16-1.47); MONOCYTES PERCENT AUTO 7 % (4-13); Mean Corpuscular HGB 34.2 pg (26.0-34.0); Mean Platelet Volume 12.6 fL (9.1-12.4); NEUTROPHILS ABSOLUTE AUTO 7.99 K/mm3 (1.96-9.15); NEUTROPHILS PERCENT AUTO 85 % (41-73); NRBC ABSOLUTE 0.02 K/mm3 (0.00-0.02); NRBC Auto 0.2 /100 WBC (0.0-0.2); Platelet Count 160 K/mm3 (150-400); RDW Coefficient Variation 21.1 % (11.7-14.2); RDW Standard Deviation 78.3 fL (35.1-46.3); Red Blood Cell Count 2.69 M/mm3 (4.30-5.90)
[2018-03-31 03:02] LABS: Mean Corpuscular Volume 104 fL (80-100)
[2018-03-31 03:15] LABS: International Normalized Ratio 1.13; Prothrombin Time Results 11.6 Sec (9.7-11.5)
[2018-03-31 03:17] LABS: Albumin, Blood 2.5 g/dL (3.4-5.0); Anion Gap 19 mmol/L (6-16); Blood Urea Nitrogen 73 mg/dL (8-24); Bun/Creatinine Ratio 9.5 (12.0-20.0); CO2, Blood 23 mmol/L (21-32); Calcium, Blood 7.1 mg/dL (8.5-10.1); Chloride, Blood 99 mmol/L (98-108); Creatinine, Blood 7.67 mg/dL (0.60-1.20); Glomerular Filtration Rate 7 (60-); Glucose, Blood 325 mg/dL (70-99); Magnesium, Blood 2.3 mg/dL (1.6-2.4); Phosphorus, Blood 6.7 mg/dL (2.5-4.9); Potassium, Blood 3.2 mmol/L (3.5-5.5); Sodium, Blood 141 mmol/L (136-145)
--- NOTE | 2018-03-31 03:35 | NUR ---
BP NIBP VIA MONITOR IS READING 70s/40s. MANUAL BP CHECKED- 86/54(63).
--- NOTE | 2018-03-31 04:15 | NUR ---
HEPARIN HEPARIN BOLUS 3700UNITS IV GIVEN PER PHARMACY. HEPARIN GTT INCREASED TO 15UNITS/KG/HR (22.2CC/HR) PER PHARMACY. NEXT PTT SCHEDULED FOR 1000.
--- NOTE | 2018-03-31 05:00 | NUR ---
CONFUSION PT FOUND ATTEMPTING TO CLIMB OUT OF BED. IV PULLED OUT AND LEADS PULLED OFF. DISORIENTED TO PLACE AND DATE/TIME. REORIENTED WITHOUT DIFFICULTY. PT STATES "I DIDN'T KNOW WHERE I WAS AND I NEEDED TO GET OUT OF BED." PT UP TO CHAIR WHILE LINEN CHANGE DONE (DUE TO BLOOD FROM IV). VACK TO BED WITH TWO PERSON ASSIST. PT REMAINS VERY WEAK. NEW IVs PLACED X 2 AND HEPARIN GTT RESTARTED. BED ALARM IS NOW ON AND CALL LIGHT WITHIN REACH.
--- NOTE | 2018-03-31 05:30 | NUR ---
BP/CALL TO MD CONTINUES TO BE HYPOTENSIVE WITH SBP 70-90s. MONITOR SHOWS AFIB WITH BBB, RATE 110-130. DR. LOCO NOTIFIED OF CONTINUED HYPOTENSION- NEW ORDERS RECEIVED.
--- NOTE | 2018-03-31 06:55 | NUR ---
SHIFT SUMMARY PERITONEAL DIALYSIS RAN T/O NOC. SBP 70-90s. REMAINED IN AFIB, RATE 100-130s T/O SHIFT. HEPARIN GTT PER PHARMACY. NS 500CC IV BOLUS INFUSING PER ORDER. KCL 40mEq IVPB INFUSING. PT TO GET CALCIUM GLUCONATE THIS AM. GENERAL WEAKNESS CONTINUES. DENIES C/O PAIN OR DISCOMFORT. ANURIC. REPORT GIVEN TO DAY SHIFT RN.
--- NOTE | 2018-03-31 07:20 | NUR ---
OVERNIGHT CCPD COMPLETE. PATIENT WAKENS EASILY TO FULL ORIENT. EFFLUENT CLEAR / JANAE. PT REPORTS FEELING MUCH STRONGER THIS AM. CYCLER STRIPPED AND CLEANED.
--- NOTE | 2018-03-31 13:27 | NUR ---
REASSESSMENT: PT HAS CONTINUED TO BE HYPOTENSIVE, BUT TOLERATING IT WITHOUT SYMPTOMS. SBP HAS RANGED FROM 70-90S. HR REMAINS IN THE 120S. DR. GRAY SPOKE WITH PT AND HIS AFTER REVIEWING HIS ECHO AND RECOMMENDED TRANSFER TO [facility], BUT [facility] DOCTORS SAY HE IS NOT A SURGICAL CANDIDATE. THIS WAS DISCUSSED THOROUGHLY WITH THE PT AND HIS BY DR. GRAY. PLAN OW IS TO MEDICALLY MANAGE. PALLIATIVE CARE CONSULT ORDERED. VANCO ORDERED PER PHARMACY PER DR. LARSON. PT AND HIS ARE SAD, BUT APPEAR TO BE HANDLING THE INFORMATION WELL. CONTINUING TO MONITOR.
--- NOTE | 2018-03-31 14:42 | NUR ---
DR. DUTTA IN TO SEE PT ALONG WITH PALLIATIVE CARE. AFTER TALKING WITH PT AND HIS SHE GAVE ORDER TO DC HEAD CT. PT SIGNED POLST AND WILL BE DNR, DNR BAND PLACED ON PT'S WRIST.
--- NOTE | 2018-03-31 14:49 | NUR ---
[facility]IAL [facility] CARE VISIT: Case conferenced with Dr Orozco and Dr Polanco. Joint visit made with Dr Orozco. Billing Spec had already updated pt/ on current concerns and status. 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 Pt is able to verbalize full understanding of this. discussed code status with pt/ in light of limited tx options available and liklihood that pt's HR would remain high and BP low so limited perfusion and effects anticipated. Pt and both request DNR status at this time and would like this documented in a POLST, which was done, signed and origianl given to to take home. Copy will be faxed to medical records and placed on chart. Pt reports he is not hurting and he is amazingly good humored t/o my visit with them. He states to , "Let's not make this into a big problem". is appropriately tearful during our conversation. Support offered. Neither pt/ have additional questions. Plan to check in with them tomorrow for s/s management and advanced care planning as appropriate. Pt opted for DNR, limited interventions and no artificial feeding by tube on his POLST. He had difficulty holding pen so Danielle signed POLST. Landon confirms that if needed Danielle is his surrogate medical decision maker. New code status orders entered in EMR.
--- NOTE | 2018-03-31 16:47 | NUR ---
PATIENT AWAKE / ALERT/ ORIENTED. RESTING IN BED. REMAINS HYPOTENSIVE WITHOUT VERBAL COMPLAINT. CYCLER STRUNG, PRIMED AND PROGRAMMED PER DR LOCO'S RX. EXI SITE CARE DONE AND NW STERILE DRESSING APPLIED WITH STRAIN RELIEF. EXIT SITE CLEAR, DRY AND NON-TENDER. INITIAL DRAIN MONITORED FOR PATIENT COMFORT. NO VERB DISCOMFORT VOICED THOUGH ID TO FILL#1. ICU STAFF INFORMED AND AWARE OF OVERNIGHT THEAPY IN PROGRESS.
--- NOTE | 2018-03-31 17:19 | NUR ---
SHIFT SUMMARY: PT CONTINUES TO BE IN AFIB RVR AND BE HYPOTENSIVE, BUT STILL ASYMPTOMATIC. AFTER FINDING OUT ABOUT THE VEGETATION IN HIS HEART AND TALKING IT OVER WITH PALLIATIVE CARE AND THE DOCTORS HE HAS DECIDED TO BE DNR AND TRY MEDICAL MANAGEMENT. OTHERWISE NO CHANGED FROM EARLIER ASSESSMENTS. ABDIRASHID, EDUCATIONAL SPEECH LANGUAGE CLINICIAN, CAME AND HOOKED PT UP TO PERITONEAL DIALYSIS FOR THE NIGHT. CONTINUING TO MONITOR.
--- NOTE | 2018-03-31 19:00 | NUR ---
ASSUMED CARE ASSUMED CARE OF PATIENT. RESTING QUIETLY WHEN UNDISTURBED. ROUSES TO VERBAL STIMULI. ALERT AND ORIENTED. COOPERATIVE WITH CARE. REPOSITIONS SELF IN BED. MONITOR SHOWS AFIB WITH BBB, RATE 120-130s. SBP 80-90s. REMAINS ON RA. RESPIRATIONS EVEN AND UNLABORED. DENIES C/O PAIN OR DISCOMFORT. PT IS ANURIC. PERITONEAL DIALYSIS IN PROGRESS. HEPARIN GTT CONTINUES @ 16UNITS/KG/HR PER PHARMACY. SEE SHIFT ASSESSMENT FOR FULL ASSESSMENT.
[2018-04-01 04:13] LABS: Hematocrit 30.1 % (37.0-53.0); Hemoglobin 9.7 g/dL (13.5-17.5)
[2018-04-01 04:32] LABS: International Normalized Ratio 1.42; Prothrombin Time Results 14.3 Sec (9.7-11.5)
[2018-04-01 04:39] LABS: Magnesium, Blood 2.2 mg/dL (1.6-2.4)
[2018-04-01 04:49] LABS: Albumin, Blood 2.4 g/dL (3.4-5.0); Anion Gap 14 mmol/L (6-16); Blood Urea Nitrogen 74 mg/dL (8-24); Bun/Creatinine Ratio 9.2 (12.0-20.0); CO2, Blood 24 mmol/L (21-32); Calcium, Blood 7.6 mg/dL (8.5-10.1); Chloride, Blood 104 mmol/L (98-108); Creatinine, Blood 8.01 mg/dL (0.60-1.20); Glomerular Filtration Rate 7 (60-); Glucose, Blood 204 mg/dL (70-99); Phosphorus, Blood 5.9 mg/dL (2.5-4.9); Potassium, Blood 3.1 mmol/L (3.5-5.5); Sodium, Blood 142 mmol/L (136-145); Vancomycin, Trough 12.4 ug/mL (5.0-10.0)
--- NOTE | 2018-04-01 06:50 | NUR ---
SHIFT SUMMARY NO ACUTE CHANGES DURING NOC. SLEPT WHEN UNDISTURBED. PERITONEAL DIALYSIS RAN DURING NOC. SBP 78-100S. REMAINS IN AFIB WITH BBB, RATE 120-150s. RA SATS STABLE. NO URINE VOID. DENIED C/O PAIN/DISCOMFORT. HEPARIN GTT PER PHARMACY- NOW INFUSING @ 17UNITS/KG/HR. POTASSIUM LEVEL LOW- NEW ORDER RECEIVED FROM DR. LOCO FOR REPLACEMENT. REPORT GIVEN TO DAY SHIFT RN.
--- NOTE | 2018-04-01 06:52 | NUR ---
PATIENT IN BED, CCPD THERAPY COMPLETE. PATIENT WAKENS EASILY. NO VERB DISCOMFORT AT THIS TIME. PATIENT AESEPTICALLY DISCONNECED AND CAPPED. CYCLER STRIPPED AND CLEANED. EFFLUENT CLEAR/JANAE.
[2018-04-01 07:07] LABS: THYROID PEROXIDASE (TPO) AB 109 IU/mL (0-34)
[2018-04-01 07:57] LABS: Alanine Aminotransfer (ALT/SGP 76 U/L (12-78); Aspartate Aminotrans (AST/SGOT 37 U/L (12-37)
--- NOTE | 2018-04-01 12:23 | NUR ---
REASSESSMENT: PT HAS BEEN RESTING IN BED THROUGHOUT THE MORNING. HE HAD SOME CONFUSION THIS MORNING AND DIFFICULTY FINDING THE RIGHT WORDS, BUT THAT HAS CLEARED AND HE IS DOING BETTER THIS AFTERNOON. HIS LUNGS ARE CLEAR, A LITTLE DIM IN THE BASES AND RATE IS TACHYPNEIC. HE APPEARS SLIGHTLY LABORED, BUT HE DENIES ANY DYSPNEA. RHYTHM CONTINUES TO BE AFIB AND HE REMAINS HYPOTENSIVE. NO EDEMA IN LOWER EXTREMITIES. HE HAS A SMALL FRICTION TYPE SORE ON HIS TAILBONE, FOAM DRESSING PLACED OVER IT. PT HAS BEEN EATING WELL TODAY. APPEARS IN GOOD SPIRITS. HE SPOKE WITH THE DOCTORS WELL PALLIATIVE CARE. DENIES ANY DISCOMFORT AND APPEARS TO UNDERSTAND HIS PROGNOSIS, BUT IS HAVING TROUBLE UDNERSTANDING OF WHAT WILL REALISTICALLY BE CAPABLE FOR HIM. HIS SEEMS TO UNDERSTAND AND BE MORE REALISTIC. CONTINUING TO PROVIDE GUIDANCE.
--- NOTE | 2018-04-01 13:03 | NUR ---
Update received from Dr Orozco & RN this am and EMR reviewed. Pt seems slightly confused during my visit. He and his were discussing a pony they had to find a home for and he was very fixated on that. He reports that Dr Paige gave him an much more hopeful report and that he just needed to continue his PD. We discussed what PD does for the kidney and other organs but that it could not correct the heart issues, valve dysfunction and vegetation found on the valve. is very able to understand and is tearful again today. Pt had recently been seen by technology teacher this am but reports she has not been in. confirms that she was. Pt appears more weak today, as well as confused. I did not molded goods spot picker on any confusion yesterday afternoon. He denies pain other than the discomfort of his position in bed. RN and I repositioned him and replaced his turn sheet, which he reported felt much better afterward. Pt and will be visited daily if possible for support and assist with s/s management, discussions re: comfort care, goals of care.
--- NOTE | 2018-04-01 16:40 | NUR ---
SHIFT SUMMARY: PT HAS BEEN RESTING IN BED THIS AFTERNOON. HE IS GETTING EASILY WINDED WITH MINIMAL ACTIVITY. HE HAS CRACKLES IN HIS R BASE NOW. PT AND HIS ARE CONTINUING TO WORK THROUGH ACCEPTING THE PROGNOSIS. PT EXPRESSES CONCERN ABOUT HIS BEING ABLE TO MANAGE EVERYTHING ON HER OWN, THEY CURRENTLY BOUGHT A NEW HOUSE IN [place] AND HAVEN'T SOLD THEIR HOME HERE YET. HE ALSO EXPRESSES CONCERN ABOUT BEING A BURDEN ON HER. PT STATES HE REMEMBERS WHAT DR. GRAY TALKED WITH HIM THIS MORNING ABOUT HOW HIS STRENGTHW ILL ONLY GET WORSE AND PT ACKNOWLEDGES THIS, BUT STATES THAT KNOWING IT DOESN'T MAKE IT ANY EASIER TO ACCEPT. COMFORT PROVIDED FOR PT.
--- NOTE | 2018-04-01 17:41 | NUR ---
PATIENT AWAKE , ALERT, SITTING UP IN BED VISITING WITH SPOUSE. CYCLER STRUNG, PRIMED AND PROGRAMMED PER DR FITZGERALD'S RX. WHEN PRIME COMPLETE, PATIENT AESEPTICALLY CONNECTED AND THERAPY STARTED. EXIT SITE CARE DONE AND NEW STERILE DRESSING APPLIED WITH STRAIN RELIEF. EXIT SITE WNL. SITE CLEAR AND NON-TENDER. INITIAL DRAIN MONITORED FOR PATIENT COMFORT AND NO SIGNS OF DISCOMFORT OBSERVED OR REPORTED. ICU STAFF AWARE OF OVERNIGHT CCPD THERAPY IN PROGRESS AND SCHEDULED TO COMPLETE TOMORROW IN THE AM.
--- NOTE | 2018-04-01 19:36 | NUR ---
1905: CARE ASSUMED, INTRODUCTIONS MADE. PT DENIES PAIN OR DISCOMFORT. AWAKE IN BED, LIGHTS OUT, GENERAL PLAN OF NURSING CARE FLOW EXPLAINED, PT AGREES.
[2018-04-02 04:24] LABS: Hematocrit 33.2 % (37.0-53.0); Hemoglobin 10.6 g/dL (13.5-17.5)
[2018-04-02 04:25] LABS: Magnesium, Blood 2.3 mg/dL (1.6-2.4)
[2018-04-02 04:44] LABS: International Normalized Ratio 2.49; Prothrombin Time Results 24.4 Sec (9.7-11.5)
[2018-04-02 04:53] LABS: Albumin, Blood 2.2 g/dL (3.4-5.0); Anion Gap 16 mmol/L (6-16); Blood Urea Nitrogen 78 mg/dL (8-24); CO2, Blood 22 mmol/L (21-32); Calcium, Blood 7.9 mg/dL (8.5-10.1); Chloride, Blood 102 mmol/L (98-108); Creatinine, Blood 8.64 mg/dL (0.60-1.20); Glomerular Filtration Rate 6 (60-); Glucose, Blood 216 mg/dL (70-99); Phosphorus, Blood 5.9 mg/dL (2.5-4.9); Potassium, Blood 3.6 mmol/L (3.5-5.5); Sodium, Blood 140 mmol/L (136-145); Vancomycin, Random 19.3 ug/mL
--- NOTE | 2018-04-02 07:48 | NUR ---
SLEPT AT SHORT INTERVALS, FREQUENT C/O "I'M ALL TIED UP IN THE SHEETS". REPOSITIONED FOR COMFORT, RESTS BETTER WHILE SLEEPING ON SIDE. SBP 72-105 DURING NOC, HR 130-150 BPM. PERITONEAL DIALYSIS CYCLE COMPLETED W/O DIFFICULTY.
--- NOTE | 2018-04-02 08:45 | NUR ---
DIALYSIS-PD 0800 PT AWAKE, BUT APPEARS WEAK, TIRED. DC'ED HIS PD TX PER AIMEE. ID [id number]. UF [id number]. HE IS SITTING UP TAKING MEDS AND GETTING READY TO EAT HIS BREAKFAST. HIS FISTULA ARM IS STILL BRUISED FROM A INFILTRATE (BEFORE ADMISSION). BUT LOOKS TO BE IMPROVING SLOWLY. TOOK HIS PD CATH BELT OFF, IT WAS IRRITATING HIS BACK.
--- NOTE | 2018-04-02 11:21 | NUR ---
0800: CARE ASSUMED, ASSESSMENT COMPLETED. PT SITTING IN BED AT THIS TIME, DENIES NEEDS OR C/O, NOT USING CALL LIGHT APPROPRIATELY, BUT SEEMS A&O OTHERWISE. HR 130'S AFIB, BBB, BP REMAINS HYPOTENSIVE, PT DENIES CHEST PAIN OR SOB AT THIS TIME, IS TACHYPNEIC, LS CLEAR. HEAPRIN INFUSING AT 16U/KG/HR PER ODERS, NS AT 10ML/HR. 0900: PO MEDICATIONS TOLERATED WELL, PT SITTING UP IN BED FINISHING BREAKFAST, AT BEDSIDE TO VISIT. PT REMAINS ALERT AND ORIENTED, VS UNCHANGED. PT REPORTS MILD SOB, LS REMAIN CLEAR. 1000: PT ASSISTED TO REPOSITION IN BED, DENIES OTHER NEEDS. IS RESTING WITH EYES CLOSED. 1130: PALLIATIVE CARE AT BEDSIDE.
--- NOTE | 2018-04-02 13:08 | NUR ---
1200: PT RESASSESSED, HR REMAINS 130'S - 150'S AFIB, BP STABLE AT THIS TIME, HYPOTENSIVE INTERMITTENTLY. LS CTA, PT REMAINS SOB AT TIMES, MOSTLY OBSERVED WHILE PT TALKING, PT ALSO BECOMES ASHEN WHEN SOB, RECOVERS QUICKLY WITH REST. PT SITTING UP IN BED EATING LUNCH, AT BEDSIDE TO ASSIST. HOME EYE DROPS BROUGHT IN BY , IN LOCK BOX IN PT'S ROOM. 1300: PT SLEEPING INTERMITTENTLY, REPOSITIONED ONTO RIGHT SIDE AT THIS TIME IN ATTEMPT TO DECREASE APNEIC EPISODES.
--- NOTE | 2018-04-02 14:29 | NUR ---
Met with patient to review his needs. Pt able to follow conversation and answer most questions but gets very fatigued and has to search for words and is forgetfull and repeats. Pt Denies headache pt states his vision has gotten much worse just sees a few shadows. He has accessory muscle use when he speaks and gets ashen when excited. He is very worried and anxious about getting his and their dogs to [place] near her family. He has much on his mind about settling his affairs with his house and family. He did well when speaking about his past work and life. He used to be in [employer] and went between [place] and [place]. They retired up here for a simpler life. Pt. expressed great grief and sadness about often feeling like the most optomisitic person in the room. He states his physicians have had many grave conversations with him about his vision and his prognosis and that he is dying. We chnaged the conversation to what he wanted to do and work on while he was alive. He spoke of his and a plan for her. He then released some stress on acceptance of his decline. He wants to fight, focused on keeping him talking so he could work it out. came in reviewed with her my role and our conversatin will return after they talk.
--- NOTE | 2018-04-02 16:03 | NUR ---
1500: PT'S BACK AT BEDSIDE VISITING WITH PT. BED BATH COMPLETED, PT BRUSHED HIS TEETH, LINENES CHANGED. MEPILEX TO COCCYX CDI. PT DENIES OTHER NEEDS, STATES HE FEELS BETTER AFTER BATH, TOLERATED WELL. 1605: PT ANXIOUS, IS FIXATING ON THE TELEPHONE, IS CONFUSED AT TIMES. DR. DUTTA NOTIFIED, NEW ORDERS RECEIVED, WILL MEDICATE WITH ATIVAN PER ORDERS FOR ANXIETY.
--- NOTE | 2018-04-02 16:52 | NUR ---
updated by physical therapy to see family again. pt resting exhausted and very tearfull. The patient was wanting her full attention. We reviewed some of our conversation and they reminised. Had brief conversation with about helping her with a plan and gave her our number and encouraged her to call. They were not open to conversation and with us wanted time together. Today was theraputic and he is less stressed about her well being so hopefull we can transition them with a plan that gives them some peace and resolution in accepting prognsosis and quality time. If and when pt goes comfort care need to see if continuing peritoneal dialysis will help with his breathing and comfort. Will review with Dailysis staff pt UF.
--- NOTE | 2018-04-02 17:36 | NUR ---
1730: PT SEEMS TO HAVE CALMED SINCE ATIVAN, IS NO LONGER TACHYPNEIC, OTHER VS REMAIN UNCHANGED. PT HAS CALLED MULTIPLE TIMES TODAY, CALLED AGAIN TO REMIND HER TO BRING CPAP, ALTHOUGH PT WAS INFORMED THAT SHE WENT HOME SPECIFICALLY TO RETRIEVE IT. PT NOW SITTING UP IN BED EATING DINNER WITHOUT DIFFICULTY, DENIES C/O.
--- NOTE | 2018-04-02 18:10 | NUR ---
Dialysis nurse called to review pt needs. review of I?O today and symptoms and trending of vitals.pt KPS score is 20% with his cardiac function limited tolerance of interventions. Suggest his armored service technician review prognosis with patient and . pt ability to make decisions may be limited due to his stress and forgetfullness. Pt expresses understanding but has great fatigue and stress.
--- NOTE | 2018-04-02 18:54 | NUR ---
1850: PT TOLERATED DINNER WELL, APPETITE IS GOOD THIS EVENING. PT THEN VISITED WITH AND TALKED ON PHONE FOR A WHILE, IS CALM AND COOPERATIVE, ORIENTED X4, NO CONFUSION OR ANXIETY APPARENT. VS REMAIN UNCHNAGED, HR 130'S - 140'S AFIB, BP 90/59, OTHER VSS. PT HAS DENIED CHEST PAIN T/O SHIFT, DENIES SOB AT THIS TIME, NO PALLOR OR TACHYPNEA NOTED. PT HAS VERBALIZED ACCEPTANCE/KNOWLEDGE OF PROGNOSIS TODAY TO PALLIATIVE CARE AND PHYSICAL THERAPY, IS STILL INTENT ON SETTLING INTO THEIR NEW HOME IN [place], HAS BEEN MAKING PLANS WITH T/O THE DAY. HAS BROUGHT IN PT'S HOME CPAP, RT AWARE. REPORT TO ONCOMING SHIFT.
--- NOTE | 2018-04-02 19:17 | NUR ---
DIALYSIS-PD PT'S LUNGS CLEAR, NO EDEMA. AND HAS HYPOTENSION. USING ONE 2.5% DEXTROSE AND 1.5% DEXTROSE DIANEAL 6 L BAGS. PT IS TALKING ABOUT GETTING HIS SETTLED IN ANOTHER STATE NEAR HER BROTHER. SAYS THEY ARE DOWNSIZING. PRIMED AND TESTED MACHINE. CONNECTED PT TO TX AT 1912. PT FALLS ASLEEP FAST AND EASY AND THEN WAKES UP A FEW MINUTES LATER.
--- NOTE | 2018-04-02 22:01 | NUR ---
AT 1930 PATIENT RESTLESS AND INSISTING TO GET OUT OF BED FOR BM. ATTEMPTED TO HAVE PATIENT USE BED VOSS DUE TO HYPOTENSION WITH NO RESULTS. PATIENT UP TO [facility] WITH 2 PERSON ASSIST AND PASSED LARGE HARD FORMED BROWN BM WITHOUT DIFFICULTY. PATIENT VERBALIZED NO DIZZINESS WHILE UP BUT DID HAVE DIZZINESS WHEN GETTING BACK TO BED. HYPOTENSION AND AFIB WITH RVR AND BBB CONTINUES. PERITONEAL DIALYSIS SET UP AND RUNNING.
[2018-04-03 04:19] LABS: Hematocrit 32.4 % (37.0-53.0); Hemoglobin 10.4 g/dL (13.5-17.5)
[2018-04-03 04:32] LABS: International Normalized Ratio 3.22
[2018-04-03 04:41] LABS: Magnesium, Blood 2.5 mg/dL (1.6-2.4)
[2018-04-03 04:58] LABS: Albumin, Blood 2.1 g/dL (3.4-5.0); Anion Gap 16 mmol/L (6-16); Blood Urea Nitrogen 81 mg/dL (8-24); Bun/Creatinine Ratio 8.6 (12.0-20.0); CO2, Blood 23 mmol/L (21-32); Calcium, Blood 7.9 mg/dL (8.5-10.1); Chloride, Blood 102 mmol/L (98-108); Creatinine, Blood 9.38 mg/dL (0.60-1.20); Glomerular Filtration Rate 6 (60-); Glucose, Blood 186 mg/dL (70-99); Phosphorus, Blood 6.4 mg/dL (2.5-4.9); Potassium, Blood 3.7 mmol/L (3.5-5.5); Sodium, Blood 141 mmol/L (136-145); Vancomycin, Random 17.9 ug/mL
--- NOTE | 2018-04-03 06:30 | NUR ---
SUMMARY PATIENT SLEEPING OFF AND ON T/O NIGHT. CPAP OFF MOST OF THE NIGHT. PERITONEAL DIALYSIS T/O NIGHT. AFIB WITH RVR CONTINUES WITH HR 120'S TO 150'S. HYPOTENSION CONTINUES. PATIENT SLIGHT SOB WITH ACTIVITY, BUT ABLE TO REPOSITION SELF IN BED FOR COMFORT. DOCTOR CLAUDY IN TO SEE PATIENT THIS AM.
--- NOTE | 2018-04-03 08:44 | NUR ---
Recieved report fr4om Constance ZHANG. Patient was havien peritoneal Dialysis and was just stopped. He was calling out for and was very directable then cleared and aske if could dial phone to talk to . he has called her several times since then because of forgetfullness. He ate 100% of breakfsat and took full cup of meds without difficulty. He has two 20ga IV's LFA both dressings intact and sites WNL's and most distal infusing NS TKO. He wore CPAP off and on last night. He continues in A-Fib RVR in the 150, currently 130's with systolic 90 and MAP >65. He is able to communicate his needs but forgetful sometimes of events and condition.
--- NOTE | 2018-04-03 08:44 | NUR ---
DIALYSIS-PD PT AWAKE, SITTING UP READY TO EAT BREAKFAST. DC'ED TX PER PROTOCAL. PT SEEMS ANXIOUS ABOUT HIS PLANS TO SELL HIS HOUSE AND MOVE. INSISTING ON CALLING HIS TO GIVE HER INSTRUCTIONS AND REMINDERS. HE SAID HE HAD ALREADY CALLED HER EARLIER. ID [id number], UF [id number]. PT STATES HE IS NOT SOB. DRESSING CLEAN. FIBRIN IN THE WASTE BAG. APPEARS TO BE ONE LARGE MASS.
--- NOTE | 2018-04-03 09:40 | NUR ---
Patient awake in bed. He continues to call out for and redirects to her being at home and then wants to call her right away. He tolerated meds and breakfast welll and denies any nausea. HR 140's and A-Fib and systolic 90's and remains RA.
--- NOTE | 2018-04-03 11:36 | NUR ---
Gave report to madina ZHANG and patient was transfered via ICU bed and was a 4 person slide transfer. 's number at bedside and all meds were transfered with patient and placed in patients box. Patients CPAP transfered as well and hooked up to 2L O2 bleed in. Two bags of personal belongings were transfered in bed. Transfered and discussed with RN of BRANDI ROACH and He remains on RA.
[2018-04-03 12:08] LABS: THYROGLOBULIN ANTIBODY <1.0 IU/mL (0.0-0.9); THYROID PEROXIDASE (TPO) AB 106 IU/mL (0-34)
--- NOTE | 2018-04-03 13:02 | NUR ---
ARRIVED TO UNIT PT ARRIVED TO UNIT APPROX 11:30. PT WAS TRANSFERED FROM CURRENT BED TO NEW BED BY STAFF MEMEBERS. PT WAS ORIENTED TO ROOM, UNIT, AND POLICIES. VITAL SIGNS STABLE. ASSESSMENT WAS COMPLETED AND FINDINGS REMAIN UNCHANGED FROM ASSESSMENT FINDINGS FROM MORNING SHIFT ASSESSMENT. PT SLEEPY UPON ARRIVAL TO UNIT BUT AROUSABLE. PT WAS ABLE TO ANSWER QUESTIONS BUT EASILY FELL BACK ASLEEP. PT HAD TO BE REORIENTED TO NEW ROOM A COUPLE OF TIMES. APRROX 12:30 PT AWOKE AND WAS ABLE TO HOLD A CONVERSATION WITHOUT FALLING ASLEEP. PT A&OX4 AT THIS TIME. PT ABLE TO FOLLOW COMMANDS AND ABLE TO SIT UP TO EAT LUNCH. AT BEDSIDE AT THIS TIME AND PT ABLE TO HOLD CONVERSATION. BED IN LOW POSITION, BED ALARM ON, CALL LIGHT IN REACH AND PT DENIES ANY NEEDS AT THIS TIME.
--- NOTE | 2018-04-03 17:42 | NUR ---
Palliative Care visit. Upon entering room, pt in right side lying position asleep and his is at bedside leaning over face down on pt's bed by his side. Neither stirred when I walked in. I gently put my hand on Danielle's back and she woke easily. I asked if I could get her a pillow or make her more comfortable. She became tearful, apologized and as we were talking Landon woke and smiled at us. I asked him if he remembered me from the weekend and he said yes. Assessed pt for comfort. He reports being comfortable and even when asked re: multple forms of discomfort he denies any distressing s/s. He is noticeably more sob with elevated RR since I saw him in ICU two days ago. He remains good humored and interested in talking about many different things. They shared stories about family, living and working in [place], the move to [place] 19 years ago, their pets and the home bought recently in [place]. They have been problem solving on how to get 3 dogs to their [place] home without driving. I asked pt if he wanted to continue his PD tx tonight and he said yes. He said it would be distressing for him to go without it because he'd been on it for so long. He verbalized that he did not have a choice about that and I let him know that he did. We discussed his hypotention and the risks of that with the dialysis. Case conferenced with c2 tactical analysis technician earlier today and let her know pt wanted to continue tx at this time. Spoke to pt re: spiritual care and music therapy and he was very receptive and states he would enjoy that. Will request music therapy tomorrow and had placed order and spoken to [facility] about that earlier today. [facility] to visit daily if possible for s/s management and support to pt/.
--- NOTE | 2018-04-03 18:15 | NUR ---
SHIFT SUMMARY PT PLEASANT AND COOPERATIVE. PT REMAINED A&O X4. AFTER EATING LUNCH PT WAS ABLE TO REST AGAIN BUT REMAINED AROUSABLE. ONCE AROUSED PT WAS ABLE TO HOLD A CONVERSATION WELL WITHOUT DROWSINESS. AT BEDSIDE INTERMITTENTLY. ALL OTHER ASSESSMENT FINDINGS REMAIN UNCHANGED. VITAL SIGNS REMAIN AT PT'S BASELINE. HEART RHYTHM REMAINS A. FIB. WITH HEART RATE IN 100'S. PT ABLE TO USE WALKER AND AMBULATE TO BATHROOM W/ PEER STAFF MEMBER AND TOLERATED WELL. BED IN LOW POSITION, BED ALARM ON, CALL LIGHT IN REACH AND PT DENIES ANY NEEDS AT THIS TIME. WILL CONTINUE TO MONITOR UNTIL HANDOFF TO NIGHTSHIFT RN.
--- NOTE | 2018-04-03 19:50 | NUR ---
PM NOTE. ASSUMED CARE OF PT APROX 1900. PT IS A&O, PLEASENT AND COOPERATEIVE WITH CARE. PT WAS ADMITTED DUE TO HYPOTENSION, PT IS CURRENTLY IN AFIB RVR W/RATE IN THE 130'S. 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 TELE INTACT, AFIB W/BBB 130'S, TRACE EDEMA NOTED TO THE PT'S BLE. PT'S L/S CLEAR BUT DIM IN THE BASES, PT'S RR AT 22. PT IS ON RA W/STATS AT 93%. BT PRESENT AND HYPOACTIVE, ABD IS SOFT AND NONTENDE TO PALP. DIALYSIS PORT IN THE PT'S MID LOWER ABD, NO S/Sx OF INFECTION, NO REDNESS, DISCHARGE OR SWELLING NOTED AROUND THE SITE. CALL LIGHT IN REACH, BED IS LOCKED AND LOW WILL CONTINUE TO MONITOR.
--- NOTE | 2018-04-03 23:25 | NUR ---
DIALYSIS-PD PT CONNECTED TO PD TREATMENT AT 1940. PER PROTOCERWIN. DRESSING CLEANED AND REDRESSED. SITE CLEAR. PT VERY SLEEPY. REPORT GIVEN TO LEATHA.
--- NOTE | 2018-04-04 01:03 | NUR ---
PT UPDATE... PT IS STARTING TO BECOME CONFUSED, PT IS CALLING OUT "HELP HELP!" OR "HELLO?" PT HAS BEEN MAKING NONSENSICAL STATEMENTS LIKE "I NEED TO GET REPOSITIONED FOR LIPITOR." OR "MY LIPITOR IS HURTING MY SHOULDER." PT WAS GIVEN LIPITOR A NIGHTLY MEDICATION EARLIER. PT IS ALSO BECOMING INCREASINGLY WEAK, PT IS UNABLE TO MOVE IN THE BED WITHOUT ASSISTANCE, PT IS ALSO NOT ABLE TO TRANSFER FROM THE BED TO THE [facility] AT THIS POINT WELL. PT'S BP HAS BEEN 116/86 AND 103/68. PT'S HR HAS BEEN 130'S-140'S AFIB WITH A BBB AND HAS BEEN HAVING MORPHOLOGY CHANGES TO HIS QRS PER TELE MONITOR. PT'S PERITONEAL DIALYSIS IS STILL IN PROGRESS. CALL LIGHT IN REACH, BED IS LOCKED AND LOW, WILL CONTINUE TO MONITOR.
[2018-04-04 04:43] LABS: Hematocrit 32.1 % (37.0-53.0); Hemoglobin 10.2 g/dL (13.5-17.5)
[2018-04-04 04:57] LABS: International Normalized Ratio 3.76; Prothrombin Time Results 35.9 Sec (9.7-11.5)
[2018-04-04 05:07] LABS: Magnesium, Blood 2.6 mg/dL (1.6-2.4)
--- NOTE | 2018-04-04 05:09 | NUR ---
SHIFT SUMMARY. PT IS STILL A LITTLE CONFUSED, PT IS STILL CURRENTLY AFIB RVR IN THE 130'S-140'S, PT'S BP HAS IMPROVED SLIGHTLY AND IS CURRENLY 103/59. PT HAS BEEN SO WEAK HE HAS BEEN REQUESTING HELP IN TURNING IN BED, PT HAS ALSO STATED "MY LEGS ARE TO WEAK TO MOVE THEM." PT DENIES ANY CHEST PAIN/PRESSURE, LIGHTHEADEDNESS/DIZZINESS OR SOB. PT'S PERITONEAL DIALYSIS HAS CONTINUED T/O THE NIGHT WITHOUT ISSUE. CALL LIGHT IN REACH, BED IS LOCKED AND LOW W/BED ALARM ON DUE TO CONFUSION. WILL CONTINUE TO MONITOR UNTIL REPORT IS GIVEN TO ONCOMING RN.
[2018-04-04 05:12] LABS: Albumin, Blood 2.1 g/dL (3.4-5.0); Anion Gap 15 mmol/L (6-16); Blood Urea Nitrogen 85 mg/dL (8-24); Bun/Creatinine Ratio 8.7 (12.0-20.0); CO2, Blood 24 mmol/L (21-32); Calcium, Blood 8.1 mg/dL (8.5-10.1); Chloride, Blood 102 mmol/L (98-108); Glomerular Filtration Rate 5 (60-); Glucose, Blood 185 mg/dL (70-99); Phosphorus, Blood 6.8 mg/dL (2.5-4.9); Potassium, Blood 3.9 mmol/L (3.5-5.5); Sodium, Blood 141 mmol/L (136-145); Vancomycin, Random 16.3 ug/mL
--- NOTE | 2018-04-04 08:55 | NUR ---
PCU DAYSHIFT ASSUMED CARE OF PT APPROX. 0700. PT A&OX4 AT THIS TIME. ASSESSMENT COMPLETED. VITAL SIGNS STABLE. HEART RHYTHM REMAINS A. FIB W/ HEART RATE IN 130'S. PT REPORTS NOT ABLE TO SEE WELL AND THIS IS CHRONIC. PT REPORTS HAVING GLASSES THAT ARE NOT WITH HIM AT THIS TIME. PERITONEAL DIALYSIS REMAIN CONNECTED AT THIS TIME BUT COMPLETED. PERITONEAL PORT REMAIN INTACT AND NO S/SX OF IRRITATION AROUND INCERTION SITE. PT HAS GENERALIZED WEAKNESS. BED IN LOW POSITION, BED ALARM ON, CALL LIGHT IN REACH AND PT DENIES ANY NEEDS AT THIS TIME. WILL CONTINUE TO MONITOR.
--- NOTE | 2018-04-04 09:11 | NUR ---
DIALYSIS-PD DC'ED TX AT 0900 PER PROTOCAL. PT VISITING WITH HIS . BOTH APPEAR VERY CALM. SITE CLEAR. UF 332, ID [id number]. PT CONCERNED ABOUT NOT GETTING ENOUGH FLUID OFF. I TOLD HIM THAT HE WASN'T DRINKING OR EATING MUCH. ASKED ABOUT HIS BREATHING AND EDEMA. HE SAID HE DIDN'T HAVE ANY SOB OR EDEMA. EXPLAINED THAT HE PROBABLY DIDN'T HAVE A LOT OF FLUID ON. HE HAS BEEN VERY FORGETFUL, SO I DOUBT HER REMEMBERS OUR CONVERSATION LATER.
--- NOTE | 2018-04-04 16:14 | NUR ---
Landon was alert, friendly and social. No reports of pain or indications of physical discomfort. He responded favorably to positive life review, reminiscence, and emotional encouragement. He spoke candidly about his medical condition, touched on the associated hardships, challenges and losses, and confessed that despite his optimism, he's struggling to full adapt to his changed reality. I listened empathically, administered psychological first aid, and offered supportive feedback, and reassurance. There appeared to be good evidence of therapeutic trust. I provided soft acoustic guitar music for non-analgesic mood control, and comfort. Landon expressed appreciation and said he found the music and attention very helpful. Landon requested that I return in the morning when his is present for additional conversation and music. I agreed. Landon appears to be processing the gravity of his situation appropriately but did display some bewilderment over what he percieves to be conflicting messages from the medical team on the likley direction of his illness. We will discuss this point further tomorrow. Thank you for this consult! Taiow Bean DMin
--- NOTE | 2018-04-04 19:15 | NUR ---
ASSUMED CARE ASSUMED CARE OF PATIENT. RESTING QUIETLY WHEN UNDISTURBED. ROUSES EASILY TO VERBAL STIMULI. ALERT AND ORIENTED WHEN AWAKE BUT DOES HAVE POOR SHORT TERM MEMORY AND OCCASIONAL CONFUSED CONVERSATION UPON FIRST WAKING UP. REPOSITIONS SELF IN BED. DENIES C/O PAIN OR DISCOMFORT AT THIS TIME. MONITOR SHOWS AFIB WITH BBB, RATE 120-130s. REMAINS ON RA. RESPIRATIONS EVEN AND UNLABORED AT REST. SLIGHT DYSPNEA AND TACHYPNEA NOTED WITH EXERTION. PERITONEAL DIALYSIS TO BE STARTED THIS PM. SEE SHIFT ASSESSMENT FOR FULL ASSESSMENT.
--- NOTE | 2018-04-04 19:26 | NUR ---
SHIFT SUMMARY PT PLEASANT AND COOPARTIVE. PT REMAINED A&O X4. VTIAL SIGNS STABLE, BLOOD PRESSURE REMAINS LOW. HEART RATE RANGING FROM 100'S-140'S. ASSESSMENT FINDINGS REMAIN UNCHANGED. PALLIATIVE CARE IN TO SEE PT TODAY. FAMILY AT BEDSDIE INTERMITENTLY. PT CONTINUES TO HAVE TROUBLES WITH HIS VISION. INTERMITTENTLY PT HAS INCREASED DYSPNEA BUT SATS REMAIN IN 90'S. PT ABLE TO TRANSFER TO BEDSIDE COMMODE TODAY, ALTHOUGH HAD WEAKNESS IN LEGS. BED IN LOW POSITION,BED ALARM ON, CALL LIGHT IN REACH AND PT DENIES ANY NEEDS AT THIS TIME. MARY CONTINUE TO MONITOR UNTIL HANDOFF TO NIGHTSHIFT RN.
--- NOTE | 2018-04-04 20:14 | NUR ---
DIALYSIS-PD RETRIEVED DIANEAL BAGS FROM THE PHARMACY (HEPARIN INSTILLED). PT HAS BEEN HAVING LARGE FIBRIN IN HIS DRAIN BAG. THIS WILL CAUSE CLOTTING OF THE CATH. PT SLEEPING SO SOUNDLY, HE DIDNT KNOW THAT I HOOKED UP TO HIS TX. ID COMPLETED WITHOUT ANY ALARMS. SAYS HE HAS NO EDEMA OR SOB BUT HE SEEMS FIXATED ON USING A HIGHER STRENGTH SOLUTION TO PULL MORE FLUID OFF (4.25% DEXTROSE OR A RED BAG). I USED A 1.5% AND A 2.5%. PT IS HYPOTENSIVE AND NO HAVING A LARGE INTAKE OF FLUID.
[2018-04-05 04:17] LABS: Hemoglobin 10.5 g/dL (13.5-17.5)
[2018-04-05 04:30] LABS: International Normalized Ratio 2.45
[2018-04-05 04:39] LABS: Magnesium, Blood 2.6 mg/dL (1.6-2.4)
[2018-04-05 05:04] LABS: Albumin, Blood 2.1 g/dL (3.4-5.0); Anion Gap 16 mmol/L (6-16); Blood Urea Nitrogen 90 mg/dL (8-24); Bun/Creatinine Ratio 8.6 (12.0-20.0); CO2, Blood 21 mmol/L (21-32); Chloride, Blood 102 mmol/L (98-108); Glomerular Filtration Rate 5 (60-); Glucose, Blood 178 mg/dL (70-99); Phosphorus, Blood 6.2 mg/dL (2.5-4.9); Potassium, Blood 3.9 mmol/L (3.5-5.5); Sodium, Blood 139 mmol/L (136-145); Vancomycin, Random 28.9 ug/mL
--- NOTE | 2018-04-05 06:05 | NUR ---
SHIFT SUMMARY NO ACUTE CHANGES DURING NOC. SLEPT INTERMITTENTLY. OCCASIONALLY MILDLY CONFUSED WHEN FIRST WAKING UP, BUT REORIENTS EASILY. REPOSITIONS SELF IN BED. DENIES C/O PAIN OR DISCOMFORT. PERITONEAL DIALYSIS DONE DURING NOC. PERITONEAL DIALYSIS CATHETER INTACT. LFA WITH GOOD THRILL/BRUIT NOTED. ARM IS BRUISED. NO URINE VOID DURING SHIFT. REMAINS IN AFIB WITH BBB, RATE 110-130s. BP STABLE. REMAINS ON RA. WILL REPORT TO DAY SHIFT RN WHEN AVAILABLE.
--- NOTE | 2018-04-05 07:10 | NUR ---
PATIENT RESTING QUIETLY IN BED. WAKENS EASILY TO PARTIAL ORIENT. OVERNIGHT CCPD COMPLETE. EFFLUENT JANAE / CLEAR. EXIT SITE STABLE. PATIENT AESEPTICALLY DISCONECTED AND CAPPED. CYCLER STRIPPED AND CLEANED.
--- NOTE | 2018-04-05 07:33 | NUR ---
pt resting in bed wakes easily, denies complaints of pain, reports he had a good night, a/ox3, pleasant and cooperative with care, follows commands well, was reported by night RN that he has occ periods of confusion but reorients easily, lungs are clear in upper luz, a bit course mid field, dimmer in bases, resp even and unlabored, no cough noted, currently on 2 liters o2 via n/c, hrr, tele in place running afib with bbb per monitor, see strip, no edema noted, ppp+1, cap refill <3sec, vs stable, afebrile, iv sites are clear and patent, btx4, has P.D. port to abd, site is clear, anauria, skin has some abrasions to b/l le, like he was scratching, some scattered bruisings, lorna, two person assist to bsc, call light in reach.
--- NOTE | 2018-04-05 13:23 | NUR ---
PT RESTING IN BED, WAS IN TO FEED HIM. NO COMPLAINTS OR NEEDS AT THIS TIME. B/P IN THE 90'S, MIDADRINE WAS GIVEN. REPORT TO ONCOMING NURSE. CALL LIGHT IN REACH.
--- NOTE | 2018-04-05 13:37 | NUR ---
Landon was alert, pleasant and conversant. His was at the bedside showing interest and affection. I engaged them in discussion around [place] challenging medical situation, listened to their frustrations and uncertaintines, provided clarification on a couple of misunderstood clinical details, and then with permission invited Palliative Care Nurse Millicent Cooper to join the conversation, answer medical questions, and facilitate a goals of care talk. The room displayed clear signs of engagement and comprehension, and appeared extremely appreciative of the support, attention and education. Per request I provided soft acoustic guitar music for reflection, comfort and reassurance. The couple expressed enjoyment and gratitude.
--- NOTE | 2018-04-05 15:12 | NUR ---
ASSUMED CARE 1300. INTRODUCED SELF TO PT.
--- NOTE | 2018-04-05 17:00 | NUR ---
Met with pt and his and chaplian Taiwo Bean. Review of heis comorbid conditions. They had many questions about his heart. Gave very simple descriptive information and how it effects breathing and circulation. They wanted to know about their trip. We reviewed tolerance and high high risk of travel and realistic palnning. reenforced need to be close to medical care and how changes in altitude and stress pt is not able to particiapte. Factual explation seemed to enhance understsanding. Reviewed risks of infection to his PD site if doing dialysis in a hotel room. Reviewed that if he was to fatigued he may miss a treatment. Reviewed quality of life and hospice for air hunger and to reduce suffering. Reviewed that there may be able to continue dialysis. Reviewed supportive care of hospice and staying home. The pt did mention possible traveling after he passes. struggled with decisional process. Difficulty is pt having struggles with retaining information. Goal is to help in her role change and decision maker and accepting of help from others. Lupillo some chester and lopez spoke of self care.
--- NOTE | 2018-04-05 17:21 | NUR ---
AWAKE / ALERT / VERBAL, VISITING WITH STAFF AND SPOUSE. HR REMAINS TACHY. NO VERB COMPLAINT. CCPD SET UP, PRIMED AND PROGRAMMED PER DR LOCO'S RX. WHEN PRIME COMPLETE, PATIENT AESEPTICALLY CONNECTED AND THERAPY INITIATED. PATIENT RESPONSE MONITORED THROUGH INITIAL DRAIN AND START OF FILL#1. NO REPORT OF DISCOMFORT. EXIT SITE CARE DONE AND NEW STERILE DRESSING APPLIED. EXIT CLEAR, DRY, TIGHT AND NON-TENDEDER. PCU STAFF AWARE OF OVERNIGHT CCPD THERAPY IN PROGRESS AND SCHEDULED TO COMPLETE IN EARLY AM TOMORROW MORNING.
--- NOTE | 2018-04-05 19:15 | NUR ---
PT PLEASANT COOP THIS AFT. DID SLEEP HARD THIS AFT AND HARD TO AWAKEN TOOK 4-5 MIN TO BE FULLY AWAKE AND ANSWER QUEST NORM. AT BEDSIDE. DID REMOVE FINGER PROBE FOR MONITOR THIS AFT. REPLACED. NO OTHER CONCERNS AT THIS TIME. BED IN LOW POSITION, CALL LITE IN REACH, CALLS APPROP
[2018-04-06 04:04] LABS: Hematocrit 31.9 % (37.0-53.0); Hemoglobin 9.9 g/dL (13.5-17.5)
--- NOTE | 2018-04-06 04:14 | NUR ---
SHIFT SUMMARY PT A&O X4, CALM AND COOPERATIVE. PT EXPRESSES DESIRE TO TX HIS CURRENT HEART CONDITION AND STATES "COMFORT CARE IS WHERE THEY SAY I'M GOING TO END UP. IT DOESN'T FEEL LIKE REAL LIFE." PT ALSO STATES "IF IT'S JUST PLAYING GAMES AND IT'S NOT GOING TO DO ANY GOOD, THEN IT'S JUST A WASTE OF TIME. I RECOGNIZE THAT. I'M NOT STUPID. I UNDERSTAND THAT." PT STATES THIS IN REFERENCE TO TX. WILL PASS THIS ON IN REPORT AND HAVE OPTIONS FURTHER ADDRESSED W/ PT. PT ABLE TO SLEEP MAJORITY OF NIGHT. VSS. SPO2 > 92% ROTATING 2L NC, CPAP, & RA. MONITOR SHOWS AFLUTER, HR 120-140'S T/O SHIFT. PT DENIES PAIN OR DISCOMFORT. PERITONEAL DIALYSIS PERFORMED BY ENROBER TENDER IN PT ROOM THIS SHIFT. PT IN BED W/ CALL LIGHT IN REACH. WILL CONTINUE TO MONITOR AND PROVIDE CARE UNTIL REPORT OFF TO DAY SHIFT RN.
[2018-04-06 04:16] LABS: International Normalized Ratio 1.63; Prothrombin Time Results 16.3 Sec (9.7-11.5)
[2018-04-06 04:28] LABS: Magnesium, Blood 2.9 mg/dL (1.6-2.4)
[2018-04-06 04:29] LABS: Albumin, Blood 2.1 g/dL (3.4-5.0); Anion Gap 16 mmol/L (6-16); Blood Urea Nitrogen 94 mg/dL (8-24); Bun/Creatinine Ratio 8.8 (12.0-20.0); CO2, Blood 23 mmol/L (21-32); Calcium, Blood 8.2 mg/dL (8.5-10.1); Chloride, Blood 101 mmol/L (98-108); Glomerular Filtration Rate 5 (60-); Glucose, Blood 161 mg/dL (70-99); Phosphorus, Blood 5.7 mg/dL (2.5-4.9); Potassium, Blood 3.7 mmol/L (3.5-5.5); Sodium, Blood 140 mmol/L (136-145); Vancomycin, Random 26.1 ug/mL
--- NOTE | 2018-04-06 07:41 | NUR ---
pt laying in bed all scrunched up, he is on his cpap, vs stable, put him on 2 liters, am care done, wants to brush teeth after breakfast, repostitioned him and gave warm blanket as he is cold, he denies pain, states he feels much better, a/ox3, with some confused statements, lungs are clear in upper luz, course in bases, resp even and unlabored, has nonproductive cough, is currently on 2 liters 02 via n/c, hrirr, tele in place running afib with bbb, rates varies from 80's to 130's, no edema noted, ppp+1, cap refill <3sec, iv to rfa site is clear and patent, infusing ns at tko, btx4, abd flat soft nontender, doesnt make urine, skin has scratches to b/l le, and dressing to coccyx for prevention, lorna, very weak, is a two person assist, richard, call light in reach.
--- NOTE | 2018-04-06 07:50 | NUR ---
PATIENT IN BED RESTING QUIETLY. WAKENS EASILY. NO REPORT OF DISCOMFORT. OVERNIGHT CCPD COMPLETE. DECREASED UF NOTED WITH THERAPY - 72 ML NET FLUID REMOVAL USING SAME RX 2 PREVIOUS NIGHTS WHICH YIELDED [address] IL CONSULTED AND NEW ORDERS RECIEVED FOR THERAPY TONIGHT. PATIENT AESEPTICALLY DISCONNECTED AND CAPPED. CATHETER STABLE AND SECURE. CYCLER STRIPPED AND CLEANED.
--- NOTE | 2018-04-06 12:53 | NUR ---
pt resting quietly, no complaints, left for a while. call light in reach.
--- NOTE | 2018-04-06 17:38 | NUR ---
IN TO FEED PT ALL HIS MEALS, PT SLEEPS WHEN LEFT UNDISTURBED, NO NEEDS AT THIS TIME. NO ACUTE CHANGES THIS SHIFT. CALL LIGHT IN REACH.
--- NOTE | 2018-04-06 18:24 | NUR ---
PATIENT RESTING IN BED. DINNER COMPLETE AND SPOUSE HAS LEFT FOR THE EVENING. PATIENT SOMNOLENT BUT WAKENS EASILY. NO VOICED DISCOMFORT AT THIS TIME. ROLAND SET UP, PRIMED AND PROGRAMMED PER DR LI'S RX. WHEN PRIME COMPLETE, PATIENT AESEPTICALLY COINNECTED AND THERAPY STARTED. INITIAL DRAIN MONITORED FOR COMPLETENESS AND PATIENT TOLERANCE. EXIT SITE CARE DONE. NEW STERILE DRESSING APPLIED WITH TWO STRAIN RELIEFS. EXIT SITE REMAINS CLEAR. ID TOLERATED WELL AND FILL #1 STARTED WITH NO VERBAL COMPLAINT. PCU STAFF APPRAISED OF CCPD OVERNIGHT THERAPY IN PROGRESS.
--- NOTE | 2018-04-07 00:07 | NUR ---
PROVIER CALLED ABOUT LOW BP AT VITAL SIGNS CHECK. NO ORDERS GIVEN. PT IS ASYMPTOMATIC OF LOW BP. PER PROVIDER MONITOR AND CALL BACK FOR ANY ACUTE CHANGES IN PT STATUS.
[2018-04-07 04:37] LABS: Hematocrit 32.5 % (37.0-53.0); Hemoglobin 10.3 g/dL (13.5-17.5); Mean Corpuscular HGB Conc 31.7 g/dL (31.5-36.5); Mean Platelet Volume 11.9 fL (9.1-12.4); NRBC ABSOLUTE 0.57 K/mm3 (0.00-0.02); NRBC Auto 5.7 /100 WBC (0.0-0.2); Platelet Count 207 K/mm3 (150-400); RDW Coefficient Variation 20.1 % (11.7-14.2); RDW Standard Deviation 73.6 fL (35.1-46.3); Red Blood Cell Count 2.94 M/mm3 (4.30-5.90); White Blood Cell Count 10.01 K/mm3 (4.00-11.30)
[2018-04-07 04:38] LABS: Mean Corpuscular Volume 111 fL (80-100)
[2018-04-07 04:51] LABS: International Normalized Ratio 1.39; Prothrombin Time Results 14.1 Sec (9.7-11.5)
[2018-04-07 04:55] LABS: BAND PERCENT MAN 6 % (0-8); BASOPHILS PERCENT MAN 0 % (0-2); EOSINOPHILS PERCENT MAN 2 % (0-6); LYMPHOCYTES PERCENT MAN 16 % (21-46); MONOCYTES PERCENT MAN 8 % (4-13); MYELOCYTE PERCENT MAN 1 % (0-0); SEG NEUTROPHILS PERCENT MAN 67 % (41-73); TOTAL CELLS COUNTED 100
[2018-04-07 05:10] LABS: Albumin, Blood 2.2 g/dL (3.4-5.0); Anion Gap 15 mmol/L (6-16); Blood Urea Nitrogen 100 mg/dL (8-24); Bun/Creatinine Ratio 8.8 (12.0-20.0); CO2, Blood 24 mmol/L (21-32); Calcium, Blood 8.6 mg/dL (8.5-10.1); Chloride, Blood 102 mmol/L (98-108); Glomerular Filtration Rate 5 (60-); Glucose, Blood 169 mg/dL (70-99); Phosphorus, Blood 5.4 mg/dL (2.5-4.9); Potassium, Blood 3.9 mmol/L (3.5-5.5); Sodium, Blood 141 mmol/L (136-145); Vancomycin, Random 22.5 ug/mL
--- NOTE | 2018-04-07 05:50 | NUR ---
SHIFT SUMMARY PT SLEEPING IN ROOM COMFORTABLY. PT WAKES EASILY WITH VERBAL. SLEPT WELL T/O SHIFT. PERITONEAL DIALYSIS CONNECTED AND INFUSING T/O NIGHT. AVIATION CONSULTANT TO COME DISCONECT THIS AM. PT DENIED PAIN T/O NIGHT. HR REMAINED TACHYCARDIC 120'S-150'S. PT DID NOT SUSTAIN RATE AT 150 MORE THAN 1-2MIN. PROVIDER CALLED ABOUT INCREASED TACHYCARDIA. NO ORDERS GIVEN D/T RENAL FUNCTION AND PT BEING ASYMPTOMATIC. PER PROVIDER CONT TO MONITOR FOR CHANGES IN STATUS. RESP EVEN UNLABORED ON CPAP T/O NIGHT. SATS >92% ON CPAP. CALL LIGHT IN REACH.
--- NOTE | 2018-04-07 08:51 | NUR ---
DIALYSIS-PD PT SITTING UP EATING BREAKFAST. [id number], ID [id number]. PT COUGHING ALOT. PT DC'ED FROM TX AT 0815 PER PROTOCAL. FLUID CLEAR.
--- NOTE | 2018-04-07 09:53 | NUR ---
pt laying in bed awake on the phone, a/ox3, pleasant and cooperative with care, follows commands well, denies pain, does have a dry cough that he did not have yesterday, heart rate is running a bit higher, in the 140's, states he slept well last night, lungs are clear in upper luz, course in bases, resp even and unlabored, hrirr, tele in place running afib with variable rate from 80's to 150's, no edema noted, PPP+1, cap refill <3sec, vs stable, afebrile, iv site to right fa is clear and patent, btx4, abd flat soft nontender, does not void, is on P.D., skin has some scratches to b/l le, dressing to coccyx for prevention, lorna, very weak, richard, call light in reach.
--- NOTE | 2018-04-07 12:42 | NUR ---
pt is more fatigued than yesterday, is sleeping when left undisturbed, was unable to participate in P.T. as much as he did yesterday. heart rate a bit higher, in 130-140's. continues to have an occ dry cough. no other complaints at this time. at most of his lunch, call light in reach.
--- NOTE | 2018-04-07 13:00 | NUR ---
ASSUMED CARE OF MR TOVAR, PT RESTING, EYES CLOSED. ON SIDE. RESP EASY UNLABORED. DID NOT AWAKEN
--- NOTE | 2018-04-07 14:22 | NUR ---
PT WANTS UP TO BSC. 2 ASST. WEAK. DID WELL TO COMMODE. USED FWW TO MOVE BACK TO BED. DID WELL. LARGE FORMED BM.
--- NOTE | 2018-04-07 17:57 | NUR ---
PT PLEASANT THIS AFT AND SULLY. NO C/O PAIN. LUNGS CLEAR AT THIS MOMENT. JUST LEFT AFTER FEEDING DINNER. USED BSC THIS AFT. LARGE BM. SITTING UP IN BED. BED IN LOW POSITION, CALL LITE IN REACH, OCC FORGETFUL, BED ALARM ON FOR SAFETY.
--- NOTE | 2018-04-07 19:15 | NUR ---
DIALYSIS-PD TOOK SUPPLIES TO THE PT'S ROOM. HE WAS SOUNDLY ASLEEP. I SET UP THE MACHINE. IT WENT THROUGH PRIME AND TEST. I CONNECTED THE PT TO THE TX AT 1845. THE PT DID WAKE UP AT THAT TIME. I WAITED FOR THE MACHINE TO GET PAST ID (INITIAL DRAIN). TALKED TO THE DONOR RELATIONS COORDINATOR RN AND GAVE HER MY PHONE NUMBER FOR ANY PROBLEMS. PT IS SOMETIMES ALERT, SOMETIMES CONFUSED, AND SOMETIMES VERY DROWSY. HE SEEMED PRETTY ALERT THIS TIME.
--- NOTE | 2018-04-07 20:58 | NUR ---
PCU NIGHTSHIFT ASSUMED CARE OF PT APPROX 1900. PT A&O X4. ASSESSMENT COMPLETED, VITAL SIGNS STABLE. PT ML HAS PERITONEAL DIALYSIS RUNNING. PT ABLE TO SIT UP AT BEDSIDE WITH NO COMPLAINTS OF DIZZINESS OR LIGHTHEADEDNESS. PT REPORT EYE SIGHT REMAINS UNCHANGED FROM 04/03/18 AND PT HAS DIFFICULTY SEEING. PT HAS GENERALIZED WEAKNESS FROM BEING DECONDITIONED. ALL OTHER ASSESSMENT FINDINGS AT BASELINE. BED IN LOW POSTION, BED ALARM ON AND PT DENIES ANY NEEDS AT THIS TIME.
[2018-04-08 04:22] LABS: International Normalized Ratio 1.52; Prothrombin Time Results 15.3 Sec (9.7-11.5)
[2018-04-08 04:58] LABS: Albumin, Blood 2.4 g/dL (3.4-5.0); Anion Gap 17 mmol/L (6-16); Blood Urea Nitrogen 105 mg/dL (8-24); Bun/Creatinine Ratio 9.5 (12.0-20.0); CO2, Blood 23 mmol/L (21-32); Calcium, Blood 9.2 mg/dL (8.5-10.1); Chloride, Blood 100 mmol/L (98-108); Glomerular Filtration Rate 5 (60-); Glucose, Blood 237 mg/dL (70-99); Phosphorus, Blood 4.6 mg/dL (2.5-4.9); Potassium, Blood 4.7 mmol/L (3.5-5.5); Sodium, Blood 140 mmol/L (136-145); Vancomycin, Random 23.4 ug/mL
--- NOTE | 2018-04-08 05:12 | NUR ---
SHIFT SUMMARY PT PLEASANT, COOPERATIVE. PT REMAINED A&O X4 T/O SHIFT. VITAL SIGNS STABLE ALTHOUGH HEART RATE REMAINS ELEVATED. PERITONEAL DIALYSIS REMAINS CONNECTED AND RAN T/O THE NIGHT. NO S/SX OF DISTRESS OR COMPLICATIONS WITH THIS. PT WORE CPAP MOST OF THE NIGHT WITH OXYGEN SATS IN 90'S. PT ML HAS 2L OXYGEN VIA N.C. IN PLACE. ASSESSMENT FINDINGS REMAIN UNCHANGED SINCE BEGINNING OF SHIFT. BED IN LOW POSITION, CALL LIGHT IN REACH AND PT DENIES ANY NEEDS AT THIS TIME. WILL CONTINUE TO MONITOR UNTIL HANDOFF TO DAYSHIFT RN.
[2018-04-08 05:31] LABS: BASOPHILS ABSOLUTE AUTO 0.03 K/mm3 (0.00-0.23); BASOPHILS PERCENT AUTO 0 % (0-2); EOSINOPHILS ABSOLUTE AUTO 0.02 K/mm3 (0.00-0.68); EOSINOPHILS PERCENT AUTO 0 % (0-6); Hematocrit 31.7 % (37.0-53.0); Hemoglobin 10.1 g/dL (13.5-17.5); IMMATURE GRAN ABSOLUTE AUTO 0.57 K/mm3 (0.00-0.10); IMMATURE GRAN PERCENT AUTO 5 % (0-1); LYMPHOCYTES ABSOLUTE AUTO 0.68 K/mm3 (0.84-5.20); LYMPHOCYTES PERCENT AUTO 7 % (21-46); MONOCYTES ABSOLUTE AUTO 0.35 K/mm3 (0.16-1.47); MONOCYTES PERCENT AUTO 3 % (4-13); Mean Corpuscular HGB 35.6 pg (26.0-34.0); Mean Corpuscular HGB Conc 31.9 g/dL (31.5-36.5); Mean Corpuscular Volume 112 fL (80-100); Mean Platelet Volume 12.5 fL (9.1-12.4); NEUTROPHILS ABSOLUTE AUTO 8.88 K/mm3 (1.96-9.15); NEUTROPHILS PERCENT AUTO 84 % (41-73); NRBC ABSOLUTE 0.27 K/mm3 (0.00-0.02); NRBC Auto 2.6 /100 WBC (0.0-0.2); Platelet Count 207 K/mm3 (150-400); RDW Coefficient Variation 20.3 % (11.7-14.2); RDW Standard Deviation 74.4 fL (35.1-46.3); Red Blood Cell Count 2.84 M/mm3 (4.30-5.90); White Blood Cell Count 10.53 K/mm3 (4.00-11.30)
[2018-04-08 05:48] LABS: BAND PERCENT MAN 4 % (0-8); BASOPHILS PERCENT MAN 0 % (0-2); EOSINOPHILS PERCENT MAN 0 % (0-6); LYMPHOCYTES ABSOLUTE MAN 0.73 K/mm3 (0.84-5.20); LYMPHOCYTES PERCENT MAN 7 % (21-46); METAMYELOCYTE PERCENT MAN 1 % (0-0); MONOCYTES ABSOLUTE MAN 0.31 K/mm3 (0.16-1.47); MONOCYTES PERCENT MAN 3 % (4-13); MYELOCYTE PERCENT MAN 1 % (0-0); NEUTROPHILS ABSOLUTE MAN 9.26 K/mm3 (1.96-9.15); SEG NEUTROPHILS PERCENT MAN 84 % (41-73); TOTAL CELLS COUNTED 100
--- NOTE | 2018-04-08 09:14 | NUR ---
DIALYSIS-PD TOOK SUPPLIES TO THE PT'S ROOM. PT SITTING UP IN BED, ALERT. PT HAS A DRY COUGH AGAIN TODAY. DC'ED HIM FROM THE TX PER AIMEE. ID [id number]. UF [id number]. NO FIBRIN SEEN. FLUID CLEAR. DRESSING INTACT, WILL CHANGE TONIGHT.
--- NOTE | 2018-04-08 17:38 | NUR ---
Frail, tired-looking, but cheerful man with agreeable disposition. Vital signs have been stable, still having afib in the 130-140 range despite initiation of Coreg this morning. Blood pressure maintaining greater than 100 mmHg systolic. He has had no complaints today. Encouraged OOB to chair, which he had readily complied with, as well as repositioning in bed to prevent breakdown and pressure ulcers.
--- NOTE | 2018-04-08 19:28 | NUR ---
DIALYSIS-PD TOOK SUPPLIES INTO PT'S ROOM. HE WAS ASLEEP. TRIED TO WAKE HIM TO TELL HIM WHAT I WAS DOING BUT HE WOULDN'T WAKE UP. I SETUP, PRIMED AND TESTED THE MACHINE. CONNECTED THE PT PER PROTOCAL. CLEANED AND DRESSED THE SITE. IT WAS SLIGHTLY RED, USED SOME ANTIBIOTIC OINTMENT ON THE DRESSING. PT ROUSED ALITTLE. TOLD HIM I HAD JUST CONNECTED THE TX. THE ID HAD SEVERAL LOW DRAIN ALARMS. AFTER THE TH ONE, I BYPASSED IT. TALKED TO LEATHA DYKES ON [employer] ABOUT CALLING ME FOR ALARMS.
--- NOTE | 2018-04-08 23:44 | NUR ---
VERY COMFORTABLE IN SLEEPING. OVER LAST 3 HR , NOTED TO BE QUITE SLEEPY AND HELD TRAZADONE DUE AT 2100. HR ALWAYS 140 AF. ORIENTED TO SELF AND MOSTLY FORGETFUL AND SOME CONFUSION TO WHERE ABOUTS. MUMBLES TO SELF, CONFUSED STATEMENTS.BP WNL .
[2018-04-09 04:26] LABS: BASOPHILS ABSOLUTE AUTO 0.02 K/mm3 (0.00-0.23); BASOPHILS PERCENT AUTO 0 % (0-2); EOSINOPHILS PERCENT AUTO 0 % (0-6); Hemoglobin 9.9 g/dL (13.5-17.5); IMMATURE GRAN ABSOLUTE AUTO 0.39 K/mm3 (0.00-0.10); IMMATURE GRAN PERCENT AUTO 3 % (0-1); LYMPHOCYTES ABSOLUTE AUTO 0.83 K/mm3 (0.84-5.20); LYMPHOCYTES PERCENT AUTO 6 % (21-46); MONOCYTES ABSOLUTE AUTO 0.87 K/mm3 (0.16-1.47); MONOCYTES PERCENT AUTO 7 % (4-13); Mean Corpuscular HGB 34.6 pg (26.0-34.0); Mean Corpuscular HGB Conc 30.9 g/dL (31.5-36.5); Mean Corpuscular Volume 112 fL (80-100); Mean Platelet Volume 12.2 fL (9.1-12.4); NEUTROPHILS PERCENT AUTO 84 % (41-73); NRBC ABSOLUTE 0.25 K/mm3 (0.00-0.02); NRBC Auto 1.9 /100 WBC (0.0-0.2); Platelet Count 194 K/mm3 (150-400); RDW Coefficient Variation 20.6 % (11.7-14.2); RDW Standard Deviation 74.3 fL (35.1-46.3); Red Blood Cell Count 2.86 M/mm3 (4.30-5.90); White Blood Cell Count 13.31 K/mm3 (4.00-11.30)
[2018-04-09 04:40] LABS: International Normalized Ratio 2.24
[2018-04-09 04:53] LABS: Albumin, Blood 2.3 g/dL (3.4-5.0); Anion Gap 16 mmol/L (6-16); Blood Urea Nitrogen 107 mg/dL (8-24); Bun/Creatinine Ratio 9.7 (12.0-20.0); CO2, Blood 25 mmol/L (21-32); Calcium, Blood 8.7 mg/dL (8.5-10.1); Chloride, Blood 100 mmol/L (98-108); Glomerular Filtration Rate 5 (60-); Glucose, Blood 222 mg/dL (70-99); Phosphorus, Blood 4.8 mg/dL (2.5-4.9); Potassium, Blood 4.1 mmol/L (3.5-5.5); Sodium, Blood 141 mmol/L (136-145); Vancomycin, Random 19.7 ug/mL
--- NOTE | 2018-04-09 06:00 | NUR ---
SUMMARY. CONT TO DESCRIBE VISION WAVES AND BLURRS OF WHITE AND BLACK AND GREYS. WHEN FULL AWAKE CONVERSIVE AND ORIENTED. SLEPT WELL ALL NOC ON CPAP. W/ O2 BLEED IN OF 3L . EARLY COREG GIVEN . AF HR RANGE 120-140. REVIEWED W/ DR LI . BP WNL DENIES ANY DISCOMFORT OR PAIN. NOTED DRY COUGH THRU NOC .
--- NOTE | 2018-04-09 08:42 | NUR ---
PATIENT LYING IN BED AWAKE AND ALERT THIS AM UPON ENTERING ROOM. OVERNIGHT CCPD COMPLETE. PATIENT AESEPTICALLY DISCONNECTED AND CAPPED. CATHETER SECURED FOR THE DAY. CYCLER STRIPPED AND CLEANED. DR LI CONSULTED FOR PLAN OF CARE / NEW ORDERS.
--- NOTE | 2018-04-09 17:35 | NUR ---
PATIENT AWAKE/ ALERT AND CONVERSANT. RESTING IN BED IN NO DISTRESS. CYCLER SET UP , PRIMED AND PROGRAMMED PER DR LI'S ORDER. WHEN PRIME COMPLETE, PATIENT AESEPTICALLY CONNECTED AND OVERNIGHT CCPD THERAPY STARTED. INITIAL DRAIN MONITORED THROUGH FILL#1 FOR PATIENT COMFORT. EXIT SITE CARE DONE AND NEW STERILE DRESSING APPLIED. PCU STAFF AWARE OF OVERNIGHT THERAPY IN PROGRESS. +
--- NOTE | 2018-04-09 19:26 | NUR ---
summary Alert, oriented, pleasant and cooperative. Attempted OOB for meals today, but managed only to do lunch. Self-repositioning in bed for prevention of skin breakdown. Appetite good. No complaints of pain or other discomfort. Heart rate continues to lack changes but blood pressure is stable.
[2018-04-10 04:08] LABS: BASOPHILS ABSOLUTE AUTO 0.02 K/mm3 (0.00-0.23); BASOPHILS PERCENT AUTO 0 % (0-2); EOSINOPHILS PERCENT AUTO 0 % (0-6); Hematocrit 31.5 % (37.0-53.0); Hemoglobin 9.8 g/dL (13.5-17.5); IMMATURE GRAN ABSOLUTE AUTO 0.62 K/mm3 (0.00-0.10); IMMATURE GRAN PERCENT AUTO 5 % (0-1); LYMPHOCYTES ABSOLUTE AUTO 0.87 K/mm3 (0.84-5.20); LYMPHOCYTES PERCENT AUTO 6 % (21-46); MONOCYTES ABSOLUTE AUTO 0.99 K/mm3 (0.16-1.47); MONOCYTES PERCENT AUTO 7 % (4-13); Mean Corpuscular HGB 35.4 pg (26.0-34.0); Mean Corpuscular HGB Conc 31.1 g/dL (31.5-36.5); Mean Corpuscular Volume 114 fL (80-100); Mean Platelet Volume 12.5 fL (9.1-12.4); NEUTROPHILS ABSOLUTE AUTO 11.27 K/mm3 (1.96-9.15); NEUTROPHILS PERCENT AUTO 82 % (41-73); NRBC ABSOLUTE 0.31 K/mm3 (0.00-0.02); NRBC Auto 2.3 /100 WBC (0.0-0.2); Platelet Count 184 K/mm3 (150-400); RDW Coefficient Variation 21.5 % (11.7-14.2); RDW Standard Deviation 76.6 fL (35.1-46.3); Red Blood Cell Count 2.77 M/mm3 (4.30-5.90); White Blood Cell Count 13.77 K/mm3 (4.00-11.30)
[2018-04-10 04:23] LABS: International Normalized Ratio 2.27; Prothrombin Time Results 22.3 Sec (9.7-11.5)
[2018-04-10 04:25] LABS: BASOPHILS PERCENT MAN 0 % (0-2); EOSINOPHILS ABSOLUTE MAN 0.13 K/mm3 (0.00-0.68); EOSINOPHILS PERCENT MAN 1 % (0-6); LYMPHOCYTES ABSOLUTE MAN 0.96 K/mm3 (0.84-5.20); LYMPHOCYTES PERCENT MAN 7 % (21-46); MONOCYTES ABSOLUTE MAN 0.82 K/mm3 (0.16-1.47); MONOCYTES PERCENT MAN 6 % (4-13); MYELOCYTE ABSOLUTE MAN 0.13 K/mm3 (0.00-0.00); MYELOCYTE PERCENT MAN 1 % (0-0); SEG NEUTROPHILS PERCENT MAN 85 % (41-73); TOTAL CELLS COUNTED 100
[2018-04-10 04:30] LABS: Magnesium, Blood 3.5 mg/dL (1.6-2.4)
[2018-04-10 04:33] LABS: Albumin, Blood 2.3 g/dL (3.4-5.0); Anion Gap 17 mmol/L (6-16); Blood Urea Nitrogen 116 mg/dL (8-24); Bun/Creatinine Ratio 10.2 (12.0-20.0); CO2, Blood 23 mmol/L (21-32); Calcium, Blood 8.9 mg/dL (8.5-10.1); Chloride, Blood 100 mmol/L (98-108); Glomerular Filtration Rate 5 (60-); Glucose, Blood 194 mg/dL (70-99); Phosphorus, Blood 4.7 mg/dL (2.5-4.9); Potassium, Blood 4.5 mmol/L (3.5-5.5); Sodium, Blood 140 mmol/L (136-145); Vancomycin, Random 18.3 ug/mL
--- NOTE | 2018-04-10 06:22 | NUR ---
SHIFT SUMMARY. DENIES PAIN.SLEEPS MOST OF NOC/ UP ONE TIME W/ BED ALARM ALERT DOES NOT REMEMBER TO CALL STAFF. HAD LG FORMED BM AND EXERTIONAL SOB EVIDENT AND RECOVERS QUICKLY AT REST . RA NOTED 82% BUT ALL NOC IF WEARING CPAP 2 L BLEED IN AND 96% NOTED. OCC HAS A PANTING SOUND AND REPORTS TRYING TO CLEAR THROAT THRU CPAP. DRY COUGH NOTED WHEN OFF CPAP. LUNGS CLEAR. COCCYX DSG ON AND STAYS ON SIDE / SIDE TO SIDE ALL NOC. OCC ON BACK. REPORTS VISION BLURRY AND SHADES OF [place] SWIRLS. NOT IMPROVED AND NOT WORSE. TOO SLEEPY TO GIVE TRAZADONE AND REFUSED THIS A SLEEPER. HR ALMOST NEVER UNDER 130-140 AF ALL NOC., EVEN WHEN ASLEEP..REFUSED HS SNACK . INSULIN LOWER DOSE THAN. CLEAR MENTATION WHEN AROUSED. A LITTLE FORGETFUL/ VERY SEVERE WEAKNESS WHEN A FEW STEPS TO BSC. SCALE.BS THIS AM 194.
--- NOTE | 2018-04-10 09:39 | NUR ---
DIALYSIS-PD DR LOCO WANTED A ANOTHER SHORT TX TO GET OFF EXTRA FLUID. PEDAL EDEMA 1+. FLUID CLEAR, SOME FIBRIN. PT CONTINUES WITH DRY COUGH. HE SAYS ITS BETTER. ID [id number] UF 800. DC'ED TX AT 0930 AND CONNECTED NEW TX AT THE SAME TIME. FLOOR RN NOTIFIED. 4 HOURS. 2000ML FILLS, 1500 LAST FILL, 1 HOUR 27 MIN DWELL.
--- NOTE | 2018-04-10 12:38 | NUR ---
Pt visit this AM. Pt is A&O x 3 and denies pain at this time. He appears dyspneic when speaking and reports dyspnea with exertion. Engaged in therapeutic conversation about his disease process and goals of care. Listened to Pt as he expresses concerns about selling his house and moving to [place] with his . Gently discussed his prognosis and Pt came to conclusion this may not be an appropriate goal at this time. Pt asked what other options he has and discussion was made about comfort care and home with hospice. Discussion was also made about postponing selling his home. Pt is agreeable with these options including comfort care and home with hospice. Made another visit when Pt's Leeanne arrived and discussed Pt's choices. Leeanne is tearful at times. Answered questions and provided emotional support to both and Pt. Spoke with Pt's nurse Miriam and she is agreeable with Plan. Spoke with Dr Morales and he is agreeable with Pt's decision and he will place order for comfort care and hospice referral. Spoke with supervisor case loading Connie and she reports starting the process for home with hospice. Connie will coordinate for same day hospice admit, provide a list of in home caregivers, and order DME's needed for Pt. Plan is for Pt to be placed on comfort care and home with hospice. Will remain available for symptom management and therapeutic visits.
--- NOTE | 2018-04-10 16:17 | NUR ---
Landon was alert, but visibly fatigued. Hi Danielle was at the bedside giving attention, and showing support. I initiated conversation, and provided therapeutic listening, reassurance and emotional guidance as the couple disclosed information about the hard choices they've faced with Landon terminal condition. Landon remains optimistic and courageous about what lies in the future, and Danielle maintains a calm, and collected disposition throughout the interaction. She's rightfully saddened by the bleak prospect of losing Landon, but doesnt currently appear to be a bereavement risk. Will follow.
--- NOTE | 2018-04-10 16:41 | NUR ---
DIALYSIS-PD TX COMPLETED, CALLED DR LOCO WITH RESULTS. HE SAID TO REPEAT THE SAME ORDER. DCED TX AND CONNECTED TO NEW TX. ID [id number] UF [id number]. PT APPEARS VERY TIRED. HIS AND ONE OF THE CHAPLAINS WAS WITH HIM.
--- NOTE | 2018-04-10 16:48 | NUR ---
The pt is on peritoneal dialysis at this time; He is very sleepy, lying on his back in bed, with irregular breathing, at times labored. He awakened to me talking to him, declined being repositioned with his head up higher as he said that it makes it more difficult for him to breathe. States that he does not want to change his position. Stated that he feels that the room temperature is comfortable to him. He falls asleep while I am still asking him questions and talking with him. Oxygen 2 l/min applied by n.c. for his comfort, to reduce the effort of him breathing. Otherwise he does not appear to be in pain, nor does her have any verbalization of any pain or discomfort at this time.
--- NOTE | 2018-04-10 17:29 | NUR ---
Spoke with Pt's nurse Miriam and she reports the Pt is experiencing significant dyspnea. Visited with Pt and he reports 5 SOB. Discussed with Pt about his allergy to oxycodone and he reports the reaction is not a true allergy. He states that he becomes unsteady and wobbly on his feet when taking the medication. Spoke with Dr Morales and received V/O for Roxinol 5mg-20mg every hour as needed for air hunger. Recommend starting Pt with 5mg of Roxinol and slowly titrate if needed.
--- NOTE | 2018-04-10 20:00 | NUR ---
ASSUMED CARE PT LAYING IN BED IN ROOM RESTING COMFORTABLY. PT DENIES PAIN, DENIES ANXIETY AT THIS TIME. REPORTS JUST READY FOR BED. PT IS COMFORT CARE. MEDICATED FOR HIGH CBG, AND HOME BIPAP IN USE. PERITONEAL DIALYSIS MACHINE IN PLACE FOR DIALYSIS OVERNIGHT. DENIES OTHER NEEDS. CALL LIGHT IN REACH.
--- NOTE | 2018-04-10 21:56 | NUR ---
DIALYSIS-PD DC'ED 4 HOUR TX AND STARTED PT'S NORMAL NIGHT TIME PD TX. 4.25% DEXTROSE AND 2.5% DEXTROSE. ID [id number] UF [id number] FROM 4 HR TX.
[2018-04-11 04:31] LABS: Hematocrit 35.9 % (37.0-53.0)
[2018-04-11 04:44] LABS: International Normalized Ratio 1.75; Prothrombin Time Results 17.5 Sec (9.7-11.5)
[2018-04-11 05:25] LABS: Magnesium, Blood 3.8 mg/dL (1.6-2.4)
--- NOTE | 2018-04-11 05:28 | NUR ---
SHIFT SUMMARY PT SLEPT WELL T/O NIGHT ON BIPAP. DENIED ANY NEEDS WITH EVERY COMFORT CHECK. PT REQUESTED NOT TO BE WOKEN WHEN CHECKED ON UNLESS NECESARY. REPORTS WILL CALL WHEN NEEDED. CALL LIGHT IS IN REACH.
[2018-04-11 05:40] LABS: Albumin, Blood 2.6 g/dL (3.4-5.0); Anion Gap 16 mmol/L (6-16); Blood Urea Nitrogen 115 mg/dL (8-24); CO2, Blood 26 mmol/L (21-32); Calcium, Blood 9.8 mg/dL (8.5-10.1); Chloride, Blood 100 mmol/L (98-108); Glucose, Blood 221 mg/dL (70-99); Phosphorus, Blood 3.9 mg/dL (2.5-4.9); Potassium, Blood 4.3 mmol/L (3.5-5.5); Sodium, Blood 142 mmol/L (136-145)
[2018-04-11 05:43] LABS: Bun/Creatinine Ratio 10.2 (12.0-20.0); Glomerular Filtration Rate 5 (60-)
--- NOTE | 2018-04-11 05:43 | NUR ---
CRITICAL VALUE LAB CALLED WITH CRITICAL VALUE CREATENINE OF 11.3. RESULT IS EXPECTED FOR TREND FOR THIS PT. DICSUSSED WITH COMPUTER VIDEO GAME DESIGNERLEATHA GUZMAN. PROVIDER NOT CALLED AT THIS TIME.
--- NOTE | 2018-04-11 09:46 | NUR ---
Pt visit this AM. He denies pain at this time and reports mild dyspnea. He reports Dr Paige visited this AM and would like him to recieve one more hemodialysis treatment today and Pt is agreeable. Spoke with Dr Burgess and gives V/O for this RN to discontinue medications with the exception of comfort medications. Pt's nurse Ezra is agreeable to this plan. No other concrens reported at this time. Will remain available.
--- NOTE | 2018-04-11 13:44 | NUR ---
DIALYSIS-PD DCED FROM LAST NIGHT TX. ID [id number] UF [id number]. CLEAR JANAE COLOR.
--- NOTE | 2018-04-11 14:37 | NUR ---
Pt visit this afernoon. Pt reports dyspnea when speaking. Offered roxinol for symptom management and he is agreeable. Spoke with Pt's nurse Ezra and he reports that he will administer medication. Spoke with Pt about oxygen in the home for comfort and Pt is agreeable. Pt's Danielle is present during visit and she would like a list of outside care angencies for in home care. Called and spoke with enterprise resource planner Jorge and she reports that she will address oxygen and bring Pt's a list of care agencies. No other concerns at this time. Will remain available.
--- NOTE | 2018-04-11 17:36 | NUR ---
pt recived morphine to help with air hunger
--- NOTE | 2018-04-11 22:07 | NUR ---
DIALYSIS-PD CONNECTED NIGHT PD TX AT 1845. PT C/O BEING VERY WEAK AND TIRED. 1X 4.25% DEXTROSE AND 1X 2.5% DEXTROSE 6 L DIANEAL BAGS. 10 HOURS.
--- NOTE | 2018-04-12 05:27 | NUR ---
SHIFT SUMMARY PT ON CC AND PD THROUGH NIGHT. REFUSED ANY PAIN MEDS BUT DID TAKE PO ATIVAN TO HELP HIM SLEEP. HE DOZED ON AND OFF T/O NIGHT. BED ALARM IN USE FOR SAFETY.
--- NOTE | 2018-04-12 07:01 | NUR ---
PATIENT RESTING QUIETLY BUT WAKENS EASILY. OVERNIGHT CCPD COMPLETE. UF [id number]. PATIENT AESEPTICALLY DISCONNECTED AND CAPPED. CYCLER STRIPPED AND CLEANED. DR LOCO CONSULTED VIA PHONE FOR PLAN OF CARE/ NEW ORDERS.
[2018-04-12 08:54] LABS: Hematocrit 37.2 % (37.0-53.0); Hemoglobin 11.2 g/dL (13.5-17.5)
[2018-04-12 09:18] LABS: Magnesium, Blood 3.5 mg/dL (1.6-2.4)
[2018-04-12 09:51] LABS: Albumin, Blood 2.5 g/dL (3.4-5.0); Anion Gap 14 mmol/L (6-16); Blood Urea Nitrogen 86 mg/dL (8-24); Bun/Creatinine Ratio 10.3 (12.0-20.0); CO2, Blood 28 mmol/L (21-32); Calcium, Blood 9.3 mg/dL (8.5-10.1); Chloride, Blood 102 mmol/L (98-108); Creatinine, Blood 8.35 mg/dL (0.60-1.20); Glomerular Filtration Rate 7 (60-); Glucose, Blood 188 mg/dL (70-99); Phosphorus, Blood 4.4 mg/dL (2.5-4.9); Potassium, Blood 3.9 mmol/L (3.5-5.5); Sodium, Blood 144 mmol/L (136-145)
[2018-04-12] MEDS ORDERED: CARV3.125 PO (10:13)
[2018-04-12] MEDS ORDERED: LORA.5 PO (10:14)
--- NOTE | 2018-04-12 10:14 | NUR ---
Late entry for service provided on 04/11/18. Usman was alert, comfortable and well supported. His sister and were both on site showing attention and concern. I provided acoustic guitar music with soft inspirational singing for nostalgia, emotional equanimity, and reflection. Landon displayed obvious evidence of interest, engagement, and gratitude. He found the music peaceful and reassuring.
[2018-04-12] MEDS ORDERED: MORP20L SL (10:15)
--- NOTE | 2018-04-12 11:09 | NUR ---
PT DISCHARGED VIA W/C IN AMBULANCE TO HOME. CARE MANAGEMENT SPOKE WITH FAMILY AND PT PRIOR TO DISCHARGE. MEDICATIONS FAXED TO PHARMACY OF PT'S CHOICE.
--- NOTE | 2018-04-12 11:12 | NUR ---
EMMY GREEN IN ROOM TALKING WITH PATIENT.
--- NOTE | 2018-04-12 13:15 | NUR ---
Landon was resting and stirred easily with acoustic stimulation. He responded favorably to attention, support and friendship. I provided words of reassurance, ecnouragement, and comfort. I wished him well and told him I would continue to keep Landon and Danielle in my thoughts and prayers. He thanked me and expressed appreciation for the music, conversation, and interest.
== END 2018-04-12 11:06 | disposition hospice, home (50) | DRG 288 ==
LOC: ER 10:23 → ICUW 15:54 → PCU 15:54 → ICUW 17:30 → PCU 04-03 11:30 → MEDS 04-11 18:08 → ENPENDDIS 04-12 10:30 → MEDS 04-12 11:06
PROVIDERS: Emergency Medicine; Internal Medicine Cardiovascular Disease; Internal Medicine Nephrology; Internal Medicine Pulmonary Disease; Pharmacist; ADMIT Internal Medicine
PROC: 30233N1 Transfusion of Nonautologous Red Blood Cells into Peripheral Vein, Percutaneous Approach (ICD-10-PCS; principal; 2018-03-30)
DX: I33.0 Acute and subacute infective endocarditis (principal); N18.6 End stage renal disease; N25.81 Secondary hyperparathyroidism of renal origin; H53.132 Sudden visual loss, left eye; I12.0 Hypertensive chronic kidney disease with stage 5 chronic kidney disease or end stage renal disease; Z79.82 Long term (current) use of aspirin; Z95.5 Presence of coronary angioplasty implant and graft; Z51.5 Encounter for palliative care; I95.9 Hypotension, unspecified; I48.91 Unspecified atrial fibrillation; Z99.2 Dependence on renal dialysis; G47.33 Obstructive sleep apnea (adult) (pediatric); E78.5 Hyperlipidemia, unspecified; D63.1 Anemia in chronic kidney disease; M19.90 Unspecified osteoarthritis, unspecified site; Z87.891 Personal history of nicotine dependence; E05.90 Thyrotoxicosis, unspecified without thyrotoxic crisis or storm; E87.6 Hypokalemia; E83.51 Hypocalcemia; E83.39 Other disorders of phosphorus metabolism; E87.70 Fluid overload, unspecified; I34.0 Nonrheumatic mitral (valve) insufficiency; I25.10 Atherosclerotic heart disease of native coronary artery without angina pectoris; I44.7 Left bundle-branch block, unspecified; Z79.52 Long term (current) use of systemic steroids; I27.20 Pulmonary hypertension, unspecified; Z66 Do not resuscitate; M31.6 Other giant cell arteritis; R40.2412 Glasgow coma scale score 13-15, at arrival to emergency department
CPT/HCPCS: 36415; 36430; 71045; 76536; 80048; 80053; 80069; 80202; 82330; 82533; 82947; 83520; 83735; 84145; 84439; 84443; 84450; 84460; 84481; 84484; 85014; 85018; 85025; 85610; 85651; 85730; 86140; 86256; 86376; 86430; 86480; 86592; 86800; 86850; 86900; 86901; 86923; 87040; 87070; 87205; 89051; 93005; 93010; 93306; 93308; 93321; 93880; 94762; 96361; 96374; 97110; 97116; 97162; 97530; 99283-25; 99285-25; J0610; J0881; J1160; J1644; J1720; J2543; J2930; J3370; J3480; J7030; J7050; P9016; P9046